=== PATIENT | male | born 1935 | race Asian ===

== ENCOUNTER 2017-09-03 07:04 | Day surgery (SDC) | payer MEDICARE, OTHER ==
[~2017-09-03] VITALS: Ht 171.4 cm; Wt 74.4 kg
[~2017-09-03 07:04] MED LIST: AMLO5TAB4 PO; ASPI-1159 PO; ATOR20TA65 PO; COR6 PO; IRBE300T18 PO; SPIR25TA PO; TICA90TA PO
[2017-09-03] MEDS ORDERED: DOXA1TAB2 PO (08:15)
[2017-09-03] MEDS ORDERED: ASPIRIN/SOD BICARB/CITRIC ACID 324MG TAB EFF ONE (08:17)
[2017-09-03] MEDS ORDERED: HYDROCORTISONE SOD SUCCINATE 250 MG/2 ML VIAL ONE (08:53)
[2017-09-03] MEDS ORDERED: DIPHENHYDRAMINE 50MG/ML VIAL ONE (08:54)
[2017-09-03] MEDS ORDERED: IODIXANOL 320MG/ML 200ML BOTTLE ONE (08:58)
[2017-09-03] MEDS ORDERED: LIDOCAINE HCL 1% 20ML VIAL (Pyxis) INJ ONE (08:58)
[2017-09-03] MEDS ORDERED: FAMOTIDINE 20MG/2ML VIAL IV ONE (08:59)
[2017-09-03 09:01] LABS: HEMATOCRIT 37.4 % (42.0-52.0); HEMOGLOBIN 12.7 g/dL (14.0-18.0); MEAN CORPUSCULAR HEMOGLOBIN 31.2 pg (28.0-32.0); PLATELET 161 x1000/uL (130-400); RED BLOOD CELL COUNT 4.06 mill/uL (4.7-6.1); RED CELL DISTRIBUTION WIDTH 13.9 % (11.6-14.6)
[2017-09-03 09:11] LABS: PROTHROMBIN TIME 10.9 sec (9.4-11.6)
[2017-09-03] MEDS ORDERED: MORPHINE SULFATE 4 MG/ML CPJ (NOT FOR IM USE) IV PRN (09:45)
[2017-09-03] MEDS ORDERED: SODIUM CHLORIDE 0.45% 1,000 ML IV ONE (09:45)
[2017-09-03] MEDS ORDERED: ATROPINE SULFATE 1MG/10ML SYR IV PRN (09:45)
[2017-09-03] MEDS ORDERED: ACETAMINOPHEN 325MG TABLET PO PRN (09:45)
[2017-09-03] MEDS ORDERED: ONDANSETRON HCL 4MG/2ML VIAL IV PRN (09:45)
[2017-09-03] MEDS ORDERED: NICARDIPINE 100MCG/ML 10ML VIAL (CATH LAB) IV ONE (13:44)
[2017-09-03] MEDS ORDERED: NITROGLYCERIN 50MCG/ML 10ML VIAL (CATH LAB) IV ONE (13:44)
[2017-09-03] MEDS ORDERED: HEPARIN SODIUM 1,000 UNIT/1ML VIAL IV ONE (15:11)
== END 2017-09-03 15:00 | disposition home or self-care (01) ==
LOC: CCL 07:04
PROVIDERS: ATTEND Specialist
DX: I25.10 Atherosclerotic heart disease of native coronary artery without angina pectoris (principal); I25.5 Ischemic cardiomyopathy; I25.2 Old myocardial infarction; I11.9 Hypertensive heart disease without heart failure; E11.9 Type 2 diabetes mellitus without complications; E78.00 Pure hypercholesterolemia, unspecified; R06.02 Shortness of breath; Z95.1 Presence of aortocoronary bypass graft; Z91.013 Allergy to seafood; Z88.8 Allergy status to other drugs, medicaments and biological substances; Z79.899 Other long term (current) drug therapy; Z98.890 Other specified postprocedural states
CPT/HCPCS: 36415; 80048; 82962; 85027; 85610; 93005; 93459; C1769; C1887; C1893; J1200; J1644; J1720; J3490; Q9967

== ENCOUNTER 2018-05-26 17:29 | Inpatient (IN) | payer MEDICARE, OTHER ==
[~2018-05-26] VITALS: Ht 172.7 cm; Wt 70.9 kg
[~2018-05-26 17:29] MED LIST changes: +DOXA1TAB2 PO
[2018-05-27] VITALS (8 sets, daily range): BP systolic 105–153; BP diastolic 48–88
[2018-05-27] MEDS ORDERED: ONDANSETRON HCL 4MG/2ML INJ IV STA (00:36)
[2018-05-27] MEDS ORDERED: MORPHINE SULFATE 4 MG/ML CPJ (NOT FOR IM USE) IV STA (00:36)
[2018-05-27] MEDS ORDERED: PIPERACILLIN/TAZ 3.375G PREMIX 50 ML IV ONE (00:45)
[2018-05-27] MEDS ORDERED: VANCOMYCIN 1 G PREMIX 200 ML IV ONE (00:45)
[2018-05-27 01:08] LABS: HEMATOCRIT. 40.3 % (42.0-52.0); HEMOGLOBIN. 13.8 g/dL (14.0-18.0); MEAN CORPUSCULAR HEMOGLOBIN 31.2 pg (28.0-32.0); MEAN CORPUSCULAR VOLUME 91.2 fL (80.0-94.0); MEAN PLATELET VOLUME 8.5 fl (7.4-10.4); PLATELET 180 x1000/uL (130-400); RED BLOOD CELL COUNT 4.42 mill/uL (4.7-6.1); RED CELL DISTRIBUTION WIDTH 15.2 % (11.6-14.6)
[2018-05-27 01:15] LABS: CHLORIDE 105 mEq/L (98-107)
[2018-05-27 03:48] LABS: PLATELET ESTIMATE NORMAL
[2018-05-27] MEDS ORDERED: SODIUM CHLORIDE 0.9% 1,000 ML IV ONE (07:08)
[2018-05-27] MEDS ORDERED: ASPIRIN/SOD BICARB/CITRIC ACID 324MG TAB EFF ONE (08:40)
[2018-05-27] MEDS ORDERED: LIDOCAINE HCL 1% 20ML VIAL (Pyxis) INJ ONE (08:40)
[2018-05-27] MEDS ORDERED: IOHEXOL-300 100 ML BOTTLE ONE (08:41)
[2018-05-27] MEDS ORDERED: IODIXANOL 320MG/ML 100 ML BOTTLE IV ONE ×2 (08:41→11:14)
[2018-05-27] MEDS ORDERED: HYDROCORTISONE SOD SUCCINATE 250 MG/2 ML VIAL ONE (08:45)
[2018-05-27] MEDS ORDERED: FAMOTIDINE 20MG/2ML VIAL IV ONE (08:45)
[2018-05-27] MEDS ORDERED: DIPHENHYDRAMINE 50MG/ML VIAL ONE (08:45)
[2018-05-27] MEDS ORDERED: ONDANSETRON HCL 4MG/2ML INJ ONE (09:11)
[2018-05-27] MEDS ORDERED: FURO-151 PO (09:16)
[2018-05-27] MEDS ORDERED: MIDAZOLAM HCL 2 MG/2 ML VIAL ONE (09:26)
[2018-05-27] MEDS ORDERED: FENTANYL CITRATE/PF 50MCG/ML 2ML VIAL ONE (09:27)
[2018-05-27] MEDS ORDERED: ACETAMINOPHEN 325MG TABLET PO PRN ×2 (09:30→12:00)
[2018-05-27] MEDS ORDERED: ATROPINE SULFATE 1MG/10ML SYR IV PRN ×2 (09:30→12:00)
[2018-05-27] MEDS ORDERED: TICAGRELOR 90 MG TABLET PO ONE ×3 (11:44→12:55)
[2018-05-27] MEDS ORDERED: DEXTROSE 50% WATER 50ML SYRINGE IV PRN (12:00)
[2018-05-27] MEDS ORDERED: ONDANSETRON HCL 4MG/2ML INJ IV PRN (12:00)
[2018-05-27] MEDS ORDERED: SODIUM CHLORIDE 0.45% 1,000 ML IV ONE (12:16)
[2018-05-27] MEDS ORDERED: CLONIDINE 0.1MG TABLET PO PRN (12:30)
[2018-05-27] MEDS ORDERED: CLONIDINE 0.2MG TABLET PO PRN (12:30)
[2018-05-27] MEDS: BLOOD SUGAR DIAGNOSTIC STRIP TEST SCH ×3 (12:40→21:51)
[2018-05-27] MEDS ORDERED: HEPARIN SODIUM 1,000 UNIT/1ML VIAL IV ONE (14:39)
[2018-05-27] MEDS: AMLODIPINE 5MG TABLET PO SCH ×2 (15:54→21:00)
[2018-05-27] MEDS ORDERED: HYDROCODONE/ACETAMINOPHEN 10/325MG TABLET PO NR (16:00)
[2018-05-27] MEDS: INSULIN LISPRO 100 UNITS/ML SUBCUT SCH ×2 (17:38→22:04)
[2018-05-27] MEDS: PIPERACILLIN/TAZ 3.375G PREMIX 50 ML IV SCH (19:56)
[2018-05-27] MEDS: DOXAZOSIN MESYLATE 2MG TABLET PO SCH (21:00)
[2018-05-27] MEDS: CARVEDILOL 3.125 MG TABLET PO SCH (21:00)
[2018-05-27] MEDS: ATORVASTATIN CALCIUM 20MG TABLET PO SCH (22:03)
[2018-05-28] VITALS (12 sets, daily range): BP systolic 99–128; BP diastolic 39–57
[2018-05-28] MEDS: PIPERACILLIN/TAZ 3.375G PREMIX 50 ML IV SCH ×3 (01:57→14:07)
[2018-05-28] MEDS: BLOOD SUGAR DIAGNOSTIC STRIP TEST SCH ×4 (06:24→21:21)
[2018-05-28] MEDS: INSULIN LISPRO 100 UNITS/ML SUBCUT SCH ×4 (06:25→21:35)
[2018-05-28 06:33] LABS: BASOPHILS % 1.1 % (0.0-2.0); EOSINOPHILS % 4.1 % (0.0-5.0); HEMATOCRIT. 28.5 % (42.0-52.0); HEMOGLOBIN. 10.1 g/dL (14.0-18.0); LYMPHOCYTES % 11.9 % (20.0-50.0); MEAN CORPUSCULAR HEMOGLOBIN 32.5 pg (28.0-32.0); MEAN PLATELET VOLUME 8.7 fl (7.4-10.4); MONOCYTES % 12.3 % (2.0-8.0); NEUTROPHILS % 70.6 % (40.0-76.0); PLATELET 147 x1000/uL (130-400); RED CELL DISTRIBUTION WIDTH 15.3 % (11.6-14.6)
[2018-05-28] MEDS: ASPIRIN 81MG TABLET PO SCH (08:58)
[2018-05-28] MEDS: CARVEDILOL 3.125 MG TABLET PO SCH ×2 (08:58→21:37)
[2018-05-28] MEDS: TICAGRELOR 90 MG TABLET PO SCH ×2 (08:59→21:35)
[2018-05-28] MEDS: AMLODIPINE 5MG TABLET PO SCH ×2 (08:59→21:00)
[2018-05-28] MEDS ORDERED: ASPIRIN 325MG TABLET PO SCH (09:00)
[2018-05-28 10:20] LABS: HEMATOCRIT 28.3 % (42.0-52.0); HEMOGLOBIN 9.6 g/dL (14.0-18.0)
[2018-05-28 14:42] LABS: CLARITY URINE CLOUDY (CLEAR); COLOR URINE YELLOW (YELLOW); KETONES URINE NEGATIVE (NEGATIVE); LEUKOCYTE ESTERASE URINE NEGATIVE (NEGATIVE); NITRITE URINE NEGATIVE (NEGATIVE); OCCULT BLOOD URINE 2+ (NEGATIVE); PH URINE 5.5 (4.5-8.0); PROTEIN URINE NEGATIVE (NEGATIVE); SPECIFIC GRAVITY URINE 1.033 (1.005-1.030); UROBILINOGEN URINE 0.2 E.U./dL (0.2-1.0)
[2018-05-28 15:11] LABS: CREATINE KINASE 35 IU/L (39-308)
[2018-05-28] MEDS ORDERED: PIPERACILLIN/TAZ 2.25G PREMIX 50 ML IV SCH (20:00)
[2018-05-28] MEDS: AMOXICILLIN/POTASSIUM CLAVULANATE 875/125MG TAB PO SCH (21:35)
[2018-05-28] MEDS: ATORVASTATIN CALCIUM 20MG TABLET PO SCH (21:38)
[2018-05-28] MEDS: DOXAZOSIN MESYLATE 2MG TABLET PO SCH (21:39)
[2018-05-29] VITALS (12 sets, daily range): BP systolic 111–145; BP diastolic 44–66
[2018-05-29] MEDS: BLOOD SUGAR DIAGNOSTIC STRIP TEST SCH ×4 (06:30→21:44)
[2018-05-29] MEDS: INSULIN LISPRO 100 UNITS/ML SUBCUT SCH ×4 (07:20→22:14)
[2018-05-29] MEDS: TICAGRELOR 90 MG TABLET PO SCH ×2 (08:01→21:32)
[2018-05-29] MEDS: AMLODIPINE 5MG TABLET PO SCH ×2 (08:01→21:00)
[2018-05-29] MEDS: ASPIRIN 81MG TABLET PO SCH (08:02)
[2018-05-29] MEDS: AMOXICILLIN/POTASSIUM CLAVULANATE 875/125MG TAB PO SCH ×2 (08:02→21:32)
[2018-05-29] MEDS: CARVEDILOL 3.125 MG TABLET PO SCH ×2 (08:02→21:38)
[2018-05-29 10:45] LABS: BASOPHILS % 1.1 % (0.0-2.0); EOSINOPHILS % 14.9 % (0.0-5.0); HEMATOCRIT. 27.9 % (42.0-52.0); HEMOGLOBIN. 9.6 g/dL (14.0-18.0); LYMPHOCYTES % 12.2 % (20.0-50.0); MEAN CORPUSCULAR HEMOGLOBIN 31.8 pg (28.0-32.0); MEAN CORPUSCULAR VOLUME 92.6 fL (80.0-94.0); MEAN PLATELET VOLUME 8.6 fl (7.4-10.4); MONOCYTES % 11.3 % (2.0-8.0); NEUTROPHILS % 60.5 % (40.0-76.0); PLATELET 162 x1000/uL (130-400); RED BLOOD CELL COUNT 3.01 mill/uL (4.7-6.1); RED CELL DISTRIBUTION WIDTH 15.1 % (11.6-14.6)
[2018-05-29] MEDS ORDERED: SODIUM CHLORIDE 0.45% 1,000 ML IV ONE (13:30)
[2018-05-29] MEDS ORDERED: SODIUM CHLORIDE 0.45% 1,000 ML IV SCH (17:15)
[2018-05-29] MEDS: FERROUS SULFATE 300MG/5ML UDC PO SCH (18:12)
[2018-05-29] MEDS: ATORVASTATIN CALCIUM 20MG TABLET PO SCH (21:32)
[2018-05-29] MEDS: DOXAZOSIN MESYLATE 2MG TABLET PO SCH (21:32)
[2018-05-30] VITALS (7 sets, daily range): BP systolic 113–122; BP diastolic 41–58
[2018-05-30 05:16] LABS: HEMATOCRIT. 25.8 % (42.0-52.0); MEAN CORPUSCULAR HEMOGLOBIN 32.1 pg (28.0-32.0); MEAN CORPUSCULAR VOLUME 91.8 fL (80.0-94.0); MEAN PLATELET VOLUME 8.3 fl (7.4-10.4); PLATELET 150 x1000/uL (130-400); RED BLOOD CELL COUNT 2.81 mill/uL (4.7-6.1); RED CELL DISTRIBUTION WIDTH 15.2 % (11.6-14.6)
[2018-05-30] MEDS: BLOOD SUGAR DIAGNOSTIC STRIP TEST SCH (05:43)
[2018-05-30] MEDS: INSULIN LISPRO 100 UNITS/ML SUBCUT SCH (07:20)
[2018-05-30] MEDS: ASPIRIN 81MG TABLET PO SCH (08:30)
[2018-05-30] MEDS: AMOXICILLIN/POTASSIUM CLAVULANATE 875/125MG TAB PO SCH (08:30)
[2018-05-30] MEDS: CARVEDILOL 3.125 MG TABLET PO SCH (08:30)
[2018-05-30] MEDS: TICAGRELOR 90 MG TABLET PO SCH (08:30)
[2018-05-30] MEDS: FERROUS SULFATE 300MG/5ML UDC PO SCH (08:31)
[2018-05-30] MEDS: AMLODIPINE 5MG TABLET PO SCH (08:33)
[2018-05-30 09:48] LABS: PLATELET ESTIMATE NORMAL
== END 2018-05-30 11:36 | disposition home or self-care (01) | DRG 271 ==
LOC: ER 17:29 → 7WST 05-27 02:43 → EDBEDREQ 05-27 02:44 → EDBEDREQTM 05-27 02:44 → ENRESERV 05-27 06:13 → 3WST 05-27 14:12
PROVIDERS: ADMIT Specialist; ATTEND Specialist
PROC: 047K3D6 (ICD-10-PCS; principal; 2018-05-27)
PROC: [UNRECOGNIZED PROCEDURE] (2018-05-27)
DX: E11.51 Type 2 diabetes mellitus with diabetic peripheral angiopathy without gangrene (principal); R71.0 Precipitous drop in hematocrit; L03.115 Cellulitis of right lower limb; L97.519 Non-pressure chronic ulcer of other part of right foot with unspecified severity; E11.621 Type 2 diabetes mellitus with foot ulcer; I25.10 Atherosclerotic heart disease of native coronary artery without angina pectoris; I65.29 Occlusion and stenosis of unspecified carotid artery; E78.00 Pure hypercholesterolemia, unspecified; R26.9 Unspecified abnormalities of gait and mobility; I25.5 Ischemic cardiomyopathy; E11.42 Type 2 diabetes mellitus with diabetic polyneuropathy; I10 Essential (primary) hypertension; Z87.891 Personal history of nicotine dependence; Z95.1 Presence of aortocoronary bypass graft; Z95.5 Presence of coronary angioplasty implant and graft; Z91.013 Allergy to seafood; Z88.9 Allergy status to unspecified drugs, medicaments and biological substances; Z79.84 Long term (current) use of oral hypoglycemic drugs
CPT/HCPCS: 36415; 37227; 73630; 74176; 75710; 76775; 76857; 80048; 82550; 82962; 83605; 83735; 85014; 85018; 85347; 93005; 96365; 96366; 97162; 99285; C1724; C1725; C1726; C1760; C1769; C1876; C1887; C1893; C1894; J1200; J1644; J1720; J1815; J2250; J2270; J2405; J2543; J3010; J3370; J3490; Q9967; J8499

== ENCOUNTER 2018-11-24 10:04 | Day surgery (SDC) | payer MEDICARE, OTHER ==
[~2018-11-24] VITALS: Ht 170.2 cm; Wt 68.0 kg
[~2018-11-24 10:04] MED LIST changes: -ASPI-1159 PO; +ASPI-1393 PO; +FURO-151 PO
[2018-11-24 13:14] LABS: HEMATOCRIT. 36.3 % (42.0-52.0); HEMOGLOBIN. 12.2 g/dL (14.0-18.0); MEAN CORPUSCULAR HEMOGLOBIN 31.7 pg (28.0-32.0); MEAN CORPUSCULAR VOLUME 94.5 fL (80.0-94.0); MEAN PLATELET VOLUME 9.3 fl (7.4-10.4); PLATELET 111 x1000/uL (130-400); RED BLOOD CELL COUNT 3.84 mill/uL (4.7-6.1); RED CELL DISTRIBUTION WIDTH 14.8 % (11.6-14.6)
[2018-11-24] MEDS ORDERED: SODIUM CHLORIDE 0.9% 1,000 ML IV SCH (13:15)
[2018-11-24 13:21] LABS: INR 1.1; PARTIAL THROMBOPLASTIN TIME 28.6 sec (23.4-31.0); PROTHROMBIN TIME 10.9 sec (9.6-11.0)
[2018-11-24] MEDS ORDERED: GENTAMICIN SULF 40MG/ML 2ML VIAL ONE (14:14)
[2018-11-24] MEDS ORDERED: BACITRACIN 15GM TUBE TOP ONE (14:14)
[2018-11-24] MEDS ORDERED: NORMAL SALINE 0.9% 10 ML SYR ONE (14:15)
[2018-11-24] MEDS ORDERED: BUPIVACAINE HCL/PF 0.5% (5MG/ML) 10ML ONE (14:15)
[2018-11-24] MEDS ORDERED: BACITRACIN 50,000 UNITS/VIAL ONE (14:15)
[2018-11-24] MEDS ORDERED: LIDOCAINE HCL 1% 20ML VIAL (Pyxis) INJ ONE (14:15)
[2018-11-24 14:30] LABS: PLATELET ESTIMATE DECREASED
[2018-11-24] MEDS ORDERED: FENTANYL CITRATE/PF 50MCG/ML 2ML VIAL ONE (14:54)
[2018-11-24] MEDS ORDERED: DOXA1TAB2 PO (16:56)
[2018-11-24] MEDS ORDERED: INSU100I28 SQ (16:56)
[2018-11-24] MEDS ORDERED: AMOX-405 PO (16:56)
[2018-11-24] MEDS ORDERED: CLOP75TA4 PO (16:56)
[2018-11-24] MEDS ORDERED: GABA-531 PO (16:56)
== END 2018-11-24 17:50 | disposition home or self-care (01) ==
LOC: OR 10:04
PROVIDERS: ATTEND Podiatrist Foot & Ankle Surgery
DX: M86.8X7 Other osteomyelitis, ankle and foot (principal); I73.9 Peripheral vascular disease, unspecified; L97.519 Non-pressure chronic ulcer of other part of right foot with unspecified severity; I10 Essential (primary) hypertension; E78.00 Pure hypercholesterolemia, unspecified; I25.10 Atherosclerotic heart disease of native coronary artery without angina pectoris; I48.91 Unspecified atrial fibrillation; Z79.82 Long term (current) use of aspirin; Z79.899 Other long term (current) drug therapy; Z91.013 Allergy to seafood; Z98.890 Other specified postprocedural states; Z88.8 Allergy status to other drugs, medicaments and biological substances; Z95.5 Presence of coronary angioplasty implant and graft; Z83.3 Family history of diabetes mellitus
CPT/HCPCS: 28820; 36415; 73620; 80048; 82962; 85025; 85610; 85730; 88305; 88311; J3010; J3490; J1580

== ENCOUNTER 2018-11-28 12:13 | Inpatient (IN) | payer MEDICARE, OTHER ==
[~2018-11-28] VITALS: Ht 170.2 cm; Wt 74.6 kg
[~2018-11-28 12:13] MED LIST changes: +AMOX-405 PO; +CLOP75TA4 PO; +GABA-531 PO; +INSU100I28 SQ; -IRBE300T18 PO; -TICA90TA PO
[2018-11-28] MEDS ORDERED: METHYLPREDNISOLONE SOD SUCC 125 MG/2 ML VIAL IV STA (12:58)
[2018-11-28] MEDS ORDERED: ALBUTEROL (0.083%) 2.5MG/3ML NEB HHN STA (12:58)
[2018-11-28 13:46] LABS: HEMATOCRIT. 37.1 % (42.0-52.0); HEMOGLOBIN. 12.3 g/dL (14.0-18.0); MEAN CORPUSCULAR HEMOGLOBIN 31.6 pg (28.0-32.0); MEAN CORPUSCULAR VOLUME 94.9 fL (80.0-94.0); MEAN PLATELET VOLUME 10.5 fl (7.4-10.4); PLATELET 132 x1000/uL (130-400); RED BLOOD CELL COUNT 3.91 mill/uL (4.7-6.1); RED CELL DISTRIBUTION WIDTH 14.9 % (11.6-14.6)
[2018-11-28 13:47] LABS: CHLORIDE 96 mEq/L (98-107)
[2018-11-28 14:11] LABS: PLATELET ESTIMATE NORMAL
[2018-11-28] MEDS ORDERED: DEXTROSE 50% WATER 50ML SYRINGE IV PRN (14:15)
[2018-11-28] MEDS ORDERED: CLONIDINE 0.1MG TABLET PO PRN (14:15)
[2018-11-28] MEDS ORDERED: ALBUTEROL (0.083%) 2.5MG/3ML NEB HHN PRN (15:30)
[2018-11-28] MEDS ORDERED: ASPIRIN 81MG TABLET PO ONE (15:30)
[2018-11-28] MEDS ORDERED: FUROSEMIDE 20MG TABLET PO ONE (15:30)
[2018-11-28] MEDS ORDERED: TICAGRELOR 90 MG TABLET PO SCH (17:00)
[2018-11-28] MEDS: ASPIRIN 81MG EC TABLET PO SCH (17:30)
[2018-11-28 17:45] VITALS: BP 134/64
[2018-11-28] MEDS: CLOPIDOGREL 75MG TABLET PO SCH (17:45)
[2018-11-28] MEDS: CEFTRIAXONE 1,000 MG in DEXTROSE 5% WATER 50 ML IV SCH (19:05)
[2018-11-28 20:00] VITALS: BP 126/88
[2018-11-28] MEDS: METHYLPREDNISOLONE SOD SUCC 40 MG/ML VIAL IV SCH (20:20)
[2018-11-28] MEDS: DOXAZOSIN MESYLATE 2MG TABLET PO SCH (20:21)
[2018-11-28] MEDS: GUAIFENESIN 600MG ER TABLET PO SCH (20:21)
[2018-11-28] MEDS: ATORVASTATIN CALCIUM 20MG TABLET PO SCH (20:21)
[2018-11-28] MEDS: ALBUTEROL (0.083%) 2.5MG/3ML NEB HHN SCH (20:36)
[2018-11-28] MEDS: INSULIN LISPRO 100 UNITS/ML SUBCUT SCH ×2 (20:59→21:00)
[2018-11-28] MEDS: BLOOD SUGAR DIAGNOSTIC STRIP TEST SCH (21:00)
[2018-11-28 22:15] VITALS: BP 128/60
[2018-11-29] VITALS (13 sets, daily range): BP systolic 120–152; BP diastolic 57–69
[2018-11-29] MEDS: ALBUTEROL (0.083%) 2.5MG/3ML NEB HHN SCH ×4 (01:05→21:28)
[2018-11-29] MEDS: METHYLPREDNISOLONE SOD SUCC 40 MG/ML VIAL IV SCH ×3 (05:33→21:30)
[2018-11-29] MEDS: BLOOD SUGAR DIAGNOSTIC STRIP TEST SCH ×4 (06:27→21:37)
[2018-11-29 07:23] LABS: BASOPHILS % 0.2 % (0.0-2.0); HEMATOCRIT. 37.6 % (42.0-52.0); HEMOGLOBIN. 12.6 g/dL (14.0-18.0); LYMPHOCYTES % 8.1 % (20.0-50.0); MEAN CORPUSCULAR HEMOGLOBIN 31.4 pg (28.0-32.0); MEAN CORPUSCULAR VOLUME 94.1 fL (80.0-94.0); MEAN PLATELET VOLUME 9.8 fl (7.4-10.4); MONOCYTES % 2.6 % (2.0-8.0); NEUTROPHILS % 89.1 % (40.0-76.0); PLATELET 131 x1000/uL (130-400); RED CELL DISTRIBUTION WIDTH 14.9 % (11.6-14.6)
[2018-11-29] MEDS: INSULIN LISPRO 100 UNITS/ML SUBCUT SCH ×4 (07:53→21:28)
[2018-11-29 07:55] LABS: CHLORIDE 95 mEq/L (98-107)
[2018-11-29 08:03] LABS: CREATINE KINASE 26 IU/L (39-308); CREATINE KINASE MB FRACTION 1.3 ng/mL (0.5-3.6); HDL CHOLESTEROL 43 mg/dL (40-59); LDL CHOLESTEROL 151 mg/dL (5-100)
[2018-11-29] MEDS: ASPIRIN 81MG EC TABLET PO SCH (08:41)
[2018-11-29] MEDS: CLOPIDOGREL 75MG TABLET PO SCH (08:41)
[2018-11-29] MEDS: ENOXAPARIN 30MG/0.3ML SYR SUBCUT SCH (08:42)
[2018-11-29] MEDS: GUAIFENESIN 600MG ER TABLET PO SCH ×2 (08:42→21:29)
[2018-11-29] MEDS ORDERED: FUROSEMIDE 40MG TABLET PO SCH (09:00)
[2018-11-29] MEDS: BUDESONIDE 0.5MG/2ML NEB HHN SCH ×2 (09:52→21:27)
[2018-11-29] MEDS: CEFTRIAXONE 1,000 MG in DEXTROSE 5% WATER 50 ML IV SCH (18:22)
[2018-11-29] MEDS: ATORVASTATIN CALCIUM 20MG TABLET PO SCH (21:29)
[2018-11-29] MEDS: DOXAZOSIN MESYLATE 2MG TABLET PO SCH (21:30)
[2018-11-30] VITALS (12 sets, daily range): BP systolic 118–153; BP diastolic 53–74
[2018-11-30] MEDS: ALBUTEROL (0.083%) 2.5MG/3ML NEB HHN SCH ×4 (02:53→20:08)
[2018-11-30] MEDS: METHYLPREDNISOLONE SOD SUCC 40 MG/ML VIAL IV SCH ×3 (06:00→21:12)
[2018-11-30] MEDS: BLOOD SUGAR DIAGNOSTIC STRIP TEST SCH ×4 (06:50→21:13)
[2018-11-30 08:04] LABS: HEMATOCRIT 36.3 % (42.0-52.0); MEAN CORPUSCULAR HEMOGLOBIN 31.5 pg (28.0-32.0); MEAN CORPUSCULAR VOLUME 94.9 fL (80.0-94.0); PLATELET 139 x1000/uL (130-400); RED BLOOD CELL COUNT 3.82 mill/uL (4.7-6.1); RED CELL DISTRIBUTION WIDTH 14.7 % (11.6-14.6)
[2018-11-30] MEDS: GUAIFENESIN 600MG ER TABLET PO SCH ×2 (09:01→21:12)
[2018-11-30] MEDS: CLOPIDOGREL 75MG TABLET PO SCH (09:01)
[2018-11-30] MEDS: ENOXAPARIN 30MG/0.3ML SYR SUBCUT SCH (09:01)
[2018-11-30] MEDS: ASPIRIN 81MG EC TABLET PO SCH (09:01)
[2018-11-30] MEDS: INSULIN LISPRO 100 UNITS/ML SUBCUT SCH ×4 (09:02→22:16)
[2018-11-30] MEDS: BUDESONIDE 0.5MG/2ML NEB HHN SCH ×2 (09:07→20:09)
[2018-11-30] MEDS: CEFTRIAXONE 1,000 MG in DEXTROSE 5% WATER 50 ML IV SCH (17:37)
[2018-11-30] MEDS: ATORVASTATIN CALCIUM 20MG TABLET PO SCH (21:12)
[2018-11-30] MEDS: DOXAZOSIN MESYLATE 2MG TABLET PO SCH (21:14)
[2018-12-01] VITALS (12 sets, daily range): BP systolic 129–153; BP diastolic 56–86
[2018-12-01] MEDS: ALBUTEROL (0.083%) 2.5MG/3ML NEB HHN SCH ×4 (01:59→20:35)
[2018-12-01] MEDS: METHYLPREDNISOLONE SOD SUCC 40 MG/ML VIAL IV SCH ×2 (06:54→12:31)
[2018-12-01] MEDS: BLOOD SUGAR DIAGNOSTIC STRIP TEST SCH ×4 (06:59→20:49)
[2018-12-01] MEDS: INSULIN LISPRO 100 UNITS/ML SUBCUT SCH ×4 (07:30→20:56)
[2018-12-01] MEDS: ENOXAPARIN 40MG/0.4ML SYR SUBCUT SCH (09:26)
[2018-12-01] MEDS: CLOPIDOGREL 75MG TABLET PO SCH (09:26)
[2018-12-01] MEDS: ASPIRIN 81MG EC TABLET PO SCH (09:26)
[2018-12-01] MEDS: GUAIFENESIN 600MG ER TABLET PO SCH ×2 (09:26→20:46)
[2018-12-01] MEDS: BUDESONIDE 0.5MG/2ML NEB HHN SCH ×2 (09:52→20:35)
[2018-12-01] MEDS ORDERED: DEXTROSE 50% WATER 50ML SYRINGE IV PRN (10:30)
[2018-12-01] MEDS: HYDROCODONE/ACETAMINOPHEN 5/325MG TABLET PO PRN (11:06)
[2018-12-01 11:13] LABS: HEMATOCRIT. 36.5 % (42.0-52.0); HEMOGLOBIN. 12.1 g/dL (14.0-18.0); MEAN CORPUSCULAR HEMOGLOBIN 31.6 pg (28.0-32.0); MEAN CORPUSCULAR VOLUME 95.5 fL (80.0-94.0); MEAN PLATELET VOLUME 9.5 fl (7.4-10.4); PLATELET 123 x1000/uL (130-400); RED BLOOD CELL COUNT 3.82 mill/uL (4.7-6.1); RED CELL DISTRIBUTION WIDTH 14.7 % (11.6-14.6)
[2018-12-01 11:20] LABS: CHLORIDE 98 mEq/L (98-107)
[2018-12-01] MEDS: PREDNISONE 20MG TABLET PO SCH ×2 (13:15→17:25)
[2018-12-01 14:07] LABS: PLATELET ESTIMATE SLIGHTLY DECREASED
[2018-12-01] MEDS: CEFTRIAXONE 1,000 MG in DEXTROSE 5% WATER 50 ML IV SCH (17:26)
[2018-12-01] MEDS: DOXAZOSIN MESYLATE 2MG TABLET PO SCH (20:45)
[2018-12-01] MEDS: ATORVASTATIN CALCIUM 20MG TABLET PO SCH (20:46)
[2018-12-01] MEDS ORDERED: INSULIN GLARGINE UD 100 UNITS/ML SYR SUBCUT SCH (22:00)
[2018-12-02] VITALS (9 sets, daily range): BP systolic 125–148; BP diastolic 61–72
[2018-12-02] MEDS: ALBUTEROL (0.083%) 2.5MG/3ML NEB HHN SCH ×2 (02:27→10:50)
[2018-12-02] MEDS: BLOOD SUGAR DIAGNOSTIC STRIP TEST SCH ×2 (05:50→11:59)
[2018-12-02 07:23] LABS: HEMATOCRIT. 37.6 % (42.0-52.0); HEMOGLOBIN. 12.6 g/dL (14.0-18.0); MEAN CORPUSCULAR HEMOGLOBIN 31.6 pg (28.0-32.0); MEAN CORPUSCULAR VOLUME 94.6 fL (80.0-94.0); MEAN PLATELET VOLUME 9.6 fl (7.4-10.4); PLATELET 133 x1000/uL (130-400); RED BLOOD CELL COUNT 3.98 mill/uL (4.7-6.1); RED CELL DISTRIBUTION WIDTH 14.8 % (11.6-14.6)
[2018-12-02 07:38] LABS: CHLORIDE 101 mEq/L (98-107)
[2018-12-02] MEDS: INSULIN LISPRO 100 UNITS/ML SUBCUT SCH ×2 (07:58→12:00)
[2018-12-02] MEDS: PREDNISONE 20MG TABLET PO SCH (08:00)
[2018-12-02] MEDS: GUAIFENESIN 600MG ER TABLET PO SCH (08:00)
[2018-12-02] MEDS: ASPIRIN 81MG EC TABLET PO SCH (08:00)
[2018-12-02] MEDS: ENOXAPARIN 40MG/0.4ML SYR SUBCUT SCH (08:00)
[2018-12-02] MEDS: CLOPIDOGREL 75MG TABLET PO SCH (08:00)
[2018-12-02] MEDS: HYDROCODONE/ACETAMINOPHEN 5/325MG TABLET PO PRN ×3 (10:16→14:51)
[2018-12-02] MEDS: BUDESONIDE 0.5MG/2ML NEB HHN SCH (10:50)
[2018-12-02 12:02] LABS: PLATELET ESTIMATE NORMAL
[2018-12-02 12:35] LABS: BG BASE EXCESS 3.8 mmol/L (-2.0-2.0); BG CARBOXYHEMOGLOBIN 0.7 % (0.5-1.5); BG FRACTION INSPIRED OXYGEN 21; BG HCO3 ACT 28.3 mmol/L (22.0-26.0); BG METHEMOGLOBIN 0.2 % (0.0-1.5); BG OXYGEN SATURATION 92.9 % (92.0-98.5); BG OXYHEMOGLOBIN 92.1 % (94.0-97.0); BG PCO2 42.4 mmHg (35.0-45.0); BG PH 7.443 (7.350-7.450); BG PO2 65.2 mmHg (75.0-100.0); BG SAMPLE SITE RIGHT BRACHIAL; BG TOTAL HEMOGLOBIN 12.9 g/dL (12.0-18.0); BG VENT MODE ROOM AIR
== END 2018-12-02 15:58 | disposition home or self-care (01) | DRG 682 ==
LOC: ER 14:20 → 3WST 14:25 → ENRESERV 16:07
PROVIDERS: ADMIT Specialist; ATTEND Specialist
DX: N17.9 Acute kidney failure, unspecified (principal); J96.01 Acute respiratory failure with hypoxia; J44.1 Chronic obstructive pulmonary disease with (acute) exacerbation; I13.0 Hypertensive heart and chronic kidney disease with heart failure and stage 1 through stage 4 chronic kidney disease, or unspecified chronic kidney disease; E87.1 Hypo-osmolality and hyponatremia; R65.10 Systemic inflammatory response syndrome (SIRS) of non-infectious origin without acute organ dysfunction; E78.00 Pure hypercholesterolemia, unspecified; E11.51 Type 2 diabetes mellitus with diabetic peripheral angiopathy without gangrene; I25.5 Ischemic cardiomyopathy; E11.22 Type 2 diabetes mellitus with diabetic chronic kidney disease; I25.10 Atherosclerotic heart disease of native coronary artery without angina pectoris; E87.5 Hyperkalemia; I50.9 Heart failure, unspecified; N18.9 Chronic kidney disease, unspecified; E78.5 Hyperlipidemia, unspecified; Z88.8 Allergy status to other drugs, medicaments and biological substances; Z91.013 Allergy to seafood; Z95.1 Presence of aortocoronary bypass graft; Z87.891 Personal history of nicotine dependence; Z79.899 Other long term (current) drug therapy; Z79.02 Long term (current) use of antithrombotics/antiplatelets; Z79.82 Long term (current) use of aspirin; Z89.421 Acquired absence of other right toe(s); Z79.4 Long term (current) use of insulin; Z95.5 Presence of coronary angioplasty implant and graft
CPT/HCPCS: 36415; 36600; 71045; 78582; 80048; 80061; 82375; 82550; 82553; 82805; 82962; 83735; 83880; 84443; 84484; 85027; 85379; 93005; 94640; 96365; 97162; 99291; A9558; J0696; J1650; J1815; J2920; J2930; J7040; J7060; J7512; J7611; J7626

== ENCOUNTER 2018-12-26 11:46 | Inpatient (IN) | payer MEDICARE, OTHER ==
[2018-12-26] VITALS (8 sets, daily range): BP systolic 103–124; BP diastolic 33–51
[~2018-12-26] VITALS: Ht 165.1 cm; Wt 69.4 kg
[2018-12-26] MEDS ORDERED: LORATADINE 10MG TABLET PO SCH (12:45)
[2018-12-26] MEDS ORDERED: DEXTROSE 50% WATER 50ML SYRINGE IV PRN (12:45)
[2018-12-26] MEDS ORDERED: DIPHENHYDRAMINE 25MG CAPSULE PO SCH (12:45)
[2018-12-26] MEDS ORDERED: ACETAMINOPHEN 650MG SUPP PR SCH (12:45)
[2018-12-26] MEDS ORDERED: CLONIDINE 0.1MG TABLET PO PRN (13:00)
[2018-12-26] MEDS: BLOOD SUGAR DIAGNOSTIC STRIP TEST SCH ×3 (13:48→21:00)
[2018-12-26] MEDS: INSULIN LISPRO 100 UNITS/ML SUBCUT SCH ×3 (13:54→21:00)
[2018-12-26] MEDS: GABAPENTIN 300MG CAPSULE PO SCH ×2 (13:58→22:31)
[2018-12-26] MEDS ORDERED: PANTOPRAZOLE SODIUM 40 MG/VIAL IV SCH (14:00)
[2018-12-26 15:48] LABS: CHLORIDE 102 mEq/L (98-107)
[2018-12-26 15:51] LABS: HEMATOCRIT. 22.1 % (42.0-52.0); HEMOGLOBIN. 7.5 g/dL (14.0-18.0); MEAN CORPUSCULAR VOLUME 94.6 fL (80.0-94.0); MEAN PLATELET VOLUME 8.7 fl (7.4-10.4); PLATELET 188 x1000/uL (130-400); RED BLOOD CELL COUNT 2.34 mill/uL (4.7-6.1); RED CELL DISTRIBUTION WIDTH 14.9 % (11.6-14.6)
[2018-12-26 15:56] LABS: TOTAL IRON BINDING CAPACITY 228 ug/dL (250-450)
[2018-12-26 16:18] LABS: VITAMIN B12 SERUM 1076 pg/mL (211-911)
[2018-12-26 16:59] LABS: NUCLEATED RED BLOOD CELLS 1 /100 WBC; PLATELET ESTIMATE NORMAL
[2018-12-26] MEDS ORDERED: SORBITOL 70% SOLN 30ML PO SCH (17:00)
[2018-12-26] MEDS: FERROUS SULFATE 325MG TABLET PO SCH (17:40)
[2018-12-26 19:45] LABS: HEMATOCRIT 22.9 % (42.0-52.0); HEMOGLOBIN 7.7 g/dL (14.0-18.0)
[2018-12-26] MEDS: ATORVASTATIN CALCIUM 20MG TABLET PO SCH (22:32)
[2018-12-26] MEDS: PANTOPRAZOLE SODIUM 40 MG/VIAL IV SCH (22:32)
[2018-12-26] MEDS: CARVEDILOL 6.25 MG TABLET PO SCH (22:32)
[2018-12-27] VITALS (8 sets, daily range): BP systolic 104–150; BP diastolic 38–64
[2018-12-27 01:27] LABS: HEMATOCRIT 25.3 % (42.0-52.0); HEMOGLOBIN 8.6 g/dL (14.0-18.0)
[2018-12-27] MEDS: BLOOD SUGAR DIAGNOSTIC STRIP TEST SCH ×4 (05:57→20:26)
[2018-12-27 07:23] LABS: BASOPHILS % 1.1 % (0.0-2.0); HEMATOCRIT. 25.3 % (42.0-52.0); HEMOGLOBIN. 8.7 g/dL (14.0-18.0); LYMPHOCYTES % 21.1 % (20.0-50.0); MEAN CORPUSCULAR HEMOGLOBIN 32.1 pg (28.0-32.0); MEAN CORPUSCULAR VOLUME 93.3 fL (80.0-94.0); MEAN PLATELET VOLUME 8.6 fl (7.4-10.4); MONOCYTES % 10.5 % (2.0-8.0); NEUTROPHILS % 53.3 % (40.0-76.0); PLATELET 175 x1000/uL (130-400); RED BLOOD CELL COUNT 2.71 mill/uL (4.7-6.1); RED CELL DISTRIBUTION WIDTH 14.9 % (11.6-14.6)
[2018-12-27 07:33] LABS: CHLORIDE 102 mEq/L (98-107)
[2018-12-27] MEDS: PANTOPRAZOLE SODIUM 40 MG/VIAL IV SCH ×2 (08:10→20:30)
[2018-12-27] MEDS: GABAPENTIN 300MG CAPSULE PO SCH ×3 (08:11→21:22)
[2018-12-27] MEDS: CARVEDILOL 6.25 MG TABLET PO SCH ×2 (08:11→20:31)
[2018-12-27] MEDS: INSULIN LISPRO 100 UNITS/ML SUBCUT SCH ×4 (08:12→20:30)
[2018-12-27] MEDS: FERROUS SULFATE 325MG TABLET PO SCH ×3 (08:14→16:07)
[2018-12-27] MEDS ORDERED: POTASSIUM CHLORIDE 20MEQ TABLET SR PO NR (09:30)
[2018-12-27] MEDS ORDERED: SORBITOL 70% SOLN 30ML PO SCH ×2 (16:00→20:00)
[2018-12-27] MEDS: ASCORBIC ACID 500 MG TABLET PO SCH ×2 (16:07→17:00)
[2018-12-27] MEDS: ATORVASTATIN CALCIUM 20MG TABLET PO SCH (20:31)
[2018-12-28] VITALS: BP 120/53
[2018-12-28 04:00] VITALS: BP 118/44
[2018-12-28] MEDS: GABAPENTIN 300MG CAPSULE PO SCH ×3 (05:37→22:06)
[2018-12-28] MEDS ORDERED: SORBITOL 70% SOLN 30ML PO NR (06:00)
[2018-12-28] MEDS: BLOOD SUGAR DIAGNOSTIC STRIP TEST SCH ×4 (06:11→21:00)
[2018-12-28 06:53] LABS: HEMATOCRIT. 26.7 % (42.0-52.0); HEMOGLOBIN. 9.1 g/dL (14.0-18.0); MEAN CORPUSCULAR HEMOGLOBIN 31.8 pg (28.0-32.0); MEAN CORPUSCULAR VOLUME 93.4 fL (80.0-94.0); MEAN PLATELET VOLUME 8.9 fl (7.4-10.4); PLATELET 203 x1000/uL (130-400); RED BLOOD CELL COUNT 2.86 mill/uL (4.7-6.1); RED CELL DISTRIBUTION WIDTH 15.3 % (11.6-14.6)
[2018-12-28 06:58] LABS: CHLORIDE 103 mEq/L (98-107)
[2018-12-28 07:19] LABS: PARTIAL THROMBOPLASTIN TIME 27.3 sec (23.4-31.0); PROTHROMBIN TIME 10.8 sec (9.6-11.0)
[2018-12-28] MEDS: FERROUS SULFATE 325MG TABLET PO SCH ×3 (07:40→22:04)
[2018-12-28] MEDS: INSULIN LISPRO 100 UNITS/ML SUBCUT SCH ×4 (07:40→21:00)
[2018-12-28] MEDS: ASCORBIC ACID 500 MG TABLET PO SCH ×3 (07:57→22:05)
[2018-12-28 08:00] VITALS: BP 109/36
[2018-12-28] MEDS: CARVEDILOL 6.25 MG TABLET PO SCH ×2 (09:00→22:05)
[2018-12-28 10:18] LABS: PLATELET ESTIMATE NORMAL
[2018-12-28] MEDS ORDERED: KCL 20MEQ/100ML PREMIX 100 ML IV SCH (12:00)
[2018-12-28 12:01] VITALS: BP 130/44
[2018-12-28] MEDS ORDERED: MIDAZOLAM HCL 5 MG/5 ML VIAL ONE (13:43)
[2018-12-28] MEDS ORDERED: FENTANYL CITRATE/PF 50MCG/ML 2ML VIAL ONE (13:43)
[2018-12-28] MEDS ORDERED: FENTANYL CITRATE/PF 50MCG/ML 2ML VIAL IV PRN (14:02)
[2018-12-28] MEDS ORDERED: MIDAZOLAM HCL 5 MG/5 ML VIAL IV PRN (14:19)
[2018-12-28] MEDS ORDERED: OMEPRAZOLE 20MG CAPSULE EXTENDED RELEASE PO NR (15:15)
[2018-12-28 16:00] VITALS: BP 135/50
[2018-12-28 16:42] LABS: BASOPHILS % 1.4 % (0.0-2.0); EOSINOPHILS % 11.9 % (0.0-5.0); HEMOGLOBIN. 8.8 g/dL (14.0-18.0); LYMPHOCYTES % 19.4 % (20.0-50.0); MEAN CORPUSCULAR HEMOGLOBIN 31.7 pg (28.0-32.0); MEAN CORPUSCULAR VOLUME 93.5 fL (80.0-94.0); MEAN PLATELET VOLUME 8.1 fl (7.4-10.4); MONOCYTES % 13.6 % (2.0-8.0); NEUTROPHILS % 53.7 % (40.0-76.0); PLATELET 207 x1000/uL (130-400); RED BLOOD CELL COUNT 2.78 mill/uL (4.7-6.1); RED CELL DISTRIBUTION WIDTH 15.2 % (11.6-14.6)
[2018-12-28 16:49] LABS: CHLORIDE 109 mEq/L (98-107)
[2018-12-28] MEDS: SUCRALFATE 1 G/10 ML UDC PO SCH ×2 (17:10→22:05)
[2018-12-28 20:00] VITALS: BP 125/51
[2018-12-28] MEDS: ATORVASTATIN CALCIUM 20MG TABLET PO SCH (22:06)
[2018-12-29] VITALS: BP 109/44
[2018-12-29 04:00] VITALS: BP 107/37
[2018-12-29] MEDS: SUCRALFATE 1 G/10 ML UDC PO SCH ×2 (06:13→12:59)
[2018-12-29] MEDS: GABAPENTIN 300MG CAPSULE PO SCH ×2 (06:13→13:00)
[2018-12-29] MEDS: INSULIN LISPRO 100 UNITS/ML SUBCUT SCH ×2 (06:29→13:11)
[2018-12-29] MEDS: BLOOD SUGAR DIAGNOSTIC STRIP TEST SCH ×2 (06:29→13:06)
[2018-12-29] MEDS ORDERED: OMEPRAZOLE 20MG CAPSULE EXTENDED RELEASE PO SCH (07:10)
[2018-12-29 08:00] VITALS: BP 147/59
[2018-12-29] MEDS: ASCORBIC ACID 500 MG TABLET PO SCH ×2 (09:20→13:00)
[2018-12-29] MEDS: CARVEDILOL 6.25 MG TABLET PO SCH (09:21)
[2018-12-29] MEDS: FERROUS SULFATE 325MG TABLET PO SCH ×2 (09:21→13:00)
[2018-12-29 12:00] VITALS: BP 117/63
[2018-12-29] MEDS ORDERED: MULTIVITAMINS,THER W-MINERALS TABLET PO SCH (13:00)
[2018-12-29] MEDS ORDERED: FURO-151 MT (16:28)
[2018-12-29] MEDS ORDERED: SPIR25TA6 PO (16:29)
[2018-12-29 16:45] VITALS: BP 117/63
== END 2018-12-29 18:00 | disposition home or self-care (01) | DRG 393 ==
LOC: 8WST 11:46
PROVIDERS: ADMIT Specialist; ATTEND Specialist
PROC: 30233N1 Transfusion of Nonautologous Red Blood Cells into Peripheral Vein, Percutaneous Approach (ICD-10-PCS; 2018-12-26)
PROC: 0DB68ZX Excision of Stomach, Via Natural or Artificial Opening Endoscopic, Diagnostic (ICD-10-PCS; principal; 2018-12-28)
PROC: 0DBK8ZX Excision of Ascending Colon, Via Natural or Artificial Opening Endoscopic, Diagnostic (ICD-10-PCS; 2018-12-28)
PROC: 0DBL8ZX Excision of Transverse Colon, Via Natural or Artificial Opening Endoscopic, Diagnostic (ICD-10-PCS; 2018-12-28)
PROC: 0DBM8ZX Excision of Descending Colon, Via Natural or Artificial Opening Endoscopic, Diagnostic (ICD-10-PCS; 2018-12-28)
DX: K63.5 Polyp of colon (principal); K29.01 Acute gastritis with bleeding; K57.31 Diverticulosis of large intestine without perforation or abscess with bleeding; E44.1 Mild protein-calorie malnutrition; L97.919 Non-pressure chronic ulcer of unspecified part of right lower leg with unspecified severity; N17.9 Acute kidney failure, unspecified; N18.9 Chronic kidney disease, unspecified; I12.9 Hypertensive chronic kidney disease with stage 1 through stage 4 chronic kidney disease, or unspecified chronic kidney disease; D50.9 Iron deficiency anemia, unspecified; E11.22 Type 2 diabetes mellitus with diabetic chronic kidney disease; E11.51 Type 2 diabetes mellitus with diabetic peripheral angiopathy without gangrene; I25.10 Atherosclerotic heart disease of native coronary artery without angina pectoris; I25.5 Ischemic cardiomyopathy; E78.00 Pure hypercholesterolemia, unspecified; E78.5 Hyperlipidemia, unspecified; N40.0 Benign prostatic hyperplasia without lower urinary tract symptoms; G62.9 Polyneuropathy, unspecified; E11.42 Type 2 diabetes mellitus with diabetic polyneuropathy; Z95.1 Presence of aortocoronary bypass graft; Z89.429 Acquired absence of other toe(s), unspecified side; Z95.5 Presence of coronary angioplasty implant and graft; Z87.19 Personal history of other diseases of the digestive system; Z87.891 Personal history of nicotine dependence; Z79.4 Long term (current) use of insulin; Z79.899 Other long term (current) drug therapy; Z79.82 Long term (current) use of aspirin; Z88.8 Allergy status to other drugs, medicaments and biological substances; Z91.013 Allergy to seafood; Z68.25 Body mass index [BMI] 25.0-25.9, adult
CPT/HCPCS: 36415; 71045; 82270; 82607; 82728; 82962; 83540; 83550; 83735; 84443; 84484; 85014; 85018; 85044; 86677; 86850; 86900; 86920; 88305; 88312; 88313; 93005; 97162; C9113; J1815; J2250; J3010; J3480; J7040; P9016; Q0163

== ENCOUNTER 2019-03-17 08:24 | Day surgery (SDC) | payer MEDICARE, OTHER ==
[~2019-03-17 08:24] MED LIST changes: -ASPI-1393 PO; +ASPI-1497 PO; -CLOP75TA4 PO; +FURO-151 MT; -FURO-151 PO; -SPIR25TA PO; +SPIR25TA6 PO
[2019-03-17] MEDS ORDERED: DIPHENHYDRAMINE 50MG/ML VIAL ONE (10:09)
[2019-03-17] MEDS ORDERED: FENTANYL CITRATE/PF 50MCG/ML 2ML VIAL ONE (10:09)
[2019-03-17] MEDS ORDERED: MIDAZOLAM HCL 2 MG/2 ML VIAL ONE (10:09)
[2019-03-17] MEDS ORDERED: LIDOCAINE HCL 1% 20ML VIAL (Pyxis) INJ ONE (10:10)
[2019-03-17] MEDS ORDERED: IODIXANOL 320MG/ML 100 ML BOTTLE IV ONE (10:10)
[2019-03-17] MEDS ORDERED: HYDROCORTISONE SOD SUCCINATE 250 MG/2 ML VIAL ONE (10:10)
[2019-03-17] MEDS ORDERED: FAMOTIDINE 20MG/2ML VIAL IV ONE (10:11)
[2019-03-17] MEDS ORDERED: ASPIRIN/SOD BICARB/CITRIC ACID 324MG TAB EFF ONE (10:11)
[2019-03-17] MEDS ORDERED: ACETAMINOPHEN 325MG TABLET PO PRN (11:15)
[2019-03-17] MEDS ORDERED: MORPHINE SULFATE 2 MG/ML CPJ (NOT FOR IM USE) IV PRN (11:15)
[2019-03-17] MEDS ORDERED: ONDANSETRON HCL 4MG/2ML INJ IV PRN (11:15)
[2019-03-17] MEDS ORDERED: ATROPINE SULFATE 1MG/10ML SYR IV PRN (11:15)
[2019-03-17] MEDS ORDERED: NITROGLYCERIN 50MCG/ML 10ML VIAL (CATH LAB) IV ONE (11:53)
[2019-03-17] MEDS ORDERED: HEPARIN SODIUM 1,000 UNIT/1ML VIAL IV ONE (11:53)
[2019-03-17] MEDS ORDERED: NICARDIPINE 100MCG/ML 10ML VIAL (CATH LAB) IV ONE (11:53)
== END 2019-03-17 17:40 | disposition home or self-care (01) ==
LOC: CCL 08:24
PROVIDERS: ATTEND Specialist
DX: I25.10 Atherosclerotic heart disease of native coronary artery without angina pectoris (principal); Z95.1 Presence of aortocoronary bypass graft; I48.92 Unspecified atrial flutter; I10 Essential (primary) hypertension; E78.5 Hyperlipidemia, unspecified; Z95.810 Presence of automatic (implantable) cardiac defibrillator; E11.9 Type 2 diabetes mellitus without complications; Z79.4 Long term (current) use of insulin; Z79.82 Long term (current) use of aspirin; Z79.899 Other long term (current) drug therapy; Z91.013 Allergy to seafood; Z88.8 Allergy status to other drugs, medicaments and biological substances
CPT/HCPCS: 82962; 93459; C1769; C1893; J1200; J1644; J1720; J3490; Q9967; 93455; J2250; J3010

== ENCOUNTER 2019-04-09 14:50 | Inpatient (IN) | payer MEDICARE, OTHER ==
[~2019-04-09] VITALS: Ht 167.6 cm; Wt 66.7 kg
[2019-04-09] MEDS ORDERED: MORPHINE SULFATE 10 MG/ML CPJ IM ONE (19:15)
[2019-04-09 19:32] LABS: HEMATOCRIT. 37.4 % (42.0-52.0); HEMOGLOBIN. 12.9 g/dL (14.0-18.0); MEAN CORPUSCULAR HEMOGLOBIN 32.8 pg (28.0-32.0); MEAN CORPUSCULAR VOLUME 95.2 fL (80.0-94.0); PLATELET 144 x1000/uL (130-400); RED BLOOD CELL COUNT 3.93 mill/uL (4.7-6.1)
[2019-04-09 19:36] LABS: CHLORIDE 97 mEq/L (98-107)
[2019-04-09 19:47] LABS: PROTHROMBIN TIME 10.6 sec (9.6-11.0)
[2019-04-09] MEDS ORDERED: NITROGLYCERIN 0.4MG TABLET SL SL PRN (20:30)
[2019-04-09] MEDS ORDERED: ZOLPIDEM TARTRATE 5MG TABLET PO PRN (20:30)
[2019-04-09] MEDS ORDERED: ENOXAPARIN 40MG/0.4ML SYR SUBCUT SCH (20:30)
[2019-04-09] MEDS ORDERED: MORPHINE SULFATE 2 MG/ML CPJ (NOT FOR IM USE) IV PRN (20:30)
[2019-04-09] MEDS ORDERED: INSULIN REGULAR (HUMULIN R) 300UNITS/3ML SUBCUT ONE (20:30)
[2019-04-09] MEDS ORDERED: ONDANSETRON HCL 4MG/2ML INJ IV PRN (20:30)
[2019-04-09] MEDS ORDERED: LORAZEPAM 0.5MG TABLET PO PRN (20:30)
[2019-04-09] MEDS ORDERED: ACETAMINOPHEN 325MG TABLET PO PRN (20:30)
[2019-04-09] MEDS ORDERED: DOCUSATE SODIUM 100MG CAPSULE PO PRN (20:30)
[2019-04-09] MEDS ORDERED: IPRATROPIUM/ALBUTEROL 0.5-3(2.5)MG/3ML NEB NEB PRN (20:30)
[2019-04-09] MEDS ORDERED: MAGNESIUM/ALUMINUM HYDROXIDE/SIMETHICONE 30ML UDC PO PRN (20:30)
[2019-04-09] MEDS ORDERED: DEXTROSE 50% WATER 50ML SYRINGE IV PRN (20:30)
[2019-04-09] MEDS ORDERED: GUAIFENESIN 200MG/10ML SUGAR FREE UDC PO PRN (20:30)
[2019-04-09] MEDS ORDERED: CLONIDINE 0.1MG TABLET PO PRN (20:30)
[2019-04-09] MEDS ORDERED: TRAMADOL 50MG TABLET PO PRN (20:30)
[2019-04-09] MEDS ORDERED: SODIUM CHLORIDE 0.9% 500 ML IV ONE (20:30)
[2019-04-09 21:00] LABS: PLATELET ESTIMATE NORMAL
[2019-04-09] MEDS ORDERED: FAMOTIDINE 20MG TABLET PO SCH (21:00)
[2019-04-09 21:20] LABS: FOLIC ACID (FOLATE) SERUM >20 ng/mL ng/mL (>5.38)
[2019-04-09 21:31] LABS: VITAMIN B12 SERUM 1544 pg/mL (211-911)
[2019-04-09] MEDS ORDERED: INSULIN GLARGINE UD 100 UNITS/ML SYR SUBCUT SCH (22:00)
[2019-04-10] MEDS ORDERED: PANTOPRAZOLE 40MG DR TABLET PO SCH (07:50)
[2019-04-10 08:20] LABS: HEMATOCRIT. 35.6 % (42.0-52.0); HEMOGLOBIN. 12.4 g/dL (14.0-18.0); MEAN CORPUSCULAR HEMOGLOBIN 32.5 pg (28.0-32.0); PLATELET 142 x1000/uL (130-400); RED BLOOD CELL COUNT 3.83 mill/uL (4.7-6.1); RED CELL DISTRIBUTION WIDTH 17.1 % (11.6-14.6)
[2019-04-10 08:27] LABS: CHLORIDE 101 mEq/L (98-107)
[2019-04-10 08:58] LABS: NUCLEATED RED BLOOD CELLS 2 /100 WBC; PLATELET ESTIMATE NORMAL
[2019-04-10] MEDS ORDERED: APIXABAN 2.5 MG TABLET PO NR ×2 (09:00→17:00)
[2019-04-10] MEDS ORDERED: SPIRONOLACTONE 25MG TABLET PO SCH (09:00)
[2019-04-10] MEDS ORDERED: AMLODIPINE 2.5MG TABLET PO SCH (09:00)
[2019-04-10] MEDS ORDERED: FUROSEMIDE 40MG TABLET PO SCH (09:00)
[2019-04-10] MEDS ORDERED: CARVEDILOL 3.125 MG TABLET PO SCH (10:00)
[2019-04-10] MEDS: BLOOD SUGAR DIAGNOSTIC STRIP TEST SCH ×3 (10:40→21:00)
[2019-04-10] MEDS: INSULIN LISPRO 100 UNITS/ML SUBCUT SCH ×3 (10:44→21:00)
[2019-04-10] MEDS ORDERED: ASPIRIN 81MG EC TABLET PO NR (14:35)
[2019-04-10 16:30] VITALS: BP 134/72
[2019-04-10] MEDS ORDERED: ZOLPIDEM TARTRATE 5MG TABLET PO PRN ×2 (16:30→18:00)
[2019-04-10] MEDS ORDERED: APIXABAN 2.5 MG TABLET PO ONE (17:00)
[2019-04-10] MEDS ORDERED: FERR325T6 MT (17:34)
[2019-04-10] MEDS ORDERED: CIPROFLOXACIN (17:34)
[2019-04-10] MEDS ORDERED: [UNRECOGNIZED DRUG - OTHER] (17:34)
[2019-04-10] MEDS ORDERED: TYLENOL WITH (17:34)
[2019-04-10] MEDS ORDERED: APIX2.5T MT (17:34)
[2019-04-10] MEDS ORDERED: P20 MT (17:34)
[2019-04-10] MEDS ORDERED: TYLENOL 3 (17:34)
[2019-04-10] MEDS ORDERED: FAMO20TA8 MT (17:34)
[2019-04-10] MEDS ORDERED: DEXTROSE 50% WATER 50ML SYRINGE IV PRN (18:00)
[2019-04-10] MEDS ORDERED: CLONIDINE 0.1MG TABLET PO PRN (18:00)
[2019-04-10] MEDS ORDERED: MAGNESIUM/ALUMINUM HYDROXIDE/SIMETHICONE 30ML UDC PO PRN (18:00)
[2019-04-10] MEDS ORDERED: ONDANSETRON HCL 4MG/2ML INJ IV PRN (18:00)
[2019-04-10] MEDS ORDERED: ACETAMINOPHEN 325MG TABLET PO PRN (18:00)
[2019-04-10] MEDS ORDERED: LORAZEPAM 0.5MG TABLET PO PRN (18:00)
[2019-04-10] MEDS ORDERED: DOCUSATE SODIUM 100MG CAPSULE PO PRN (18:00)
[2019-04-10] MEDS ORDERED: GUAIFENESIN 200MG/10ML SUGAR FREE UDC PO PRN (18:00)
[2019-04-10] MEDS ORDERED: NITROGLYCERIN 0.4MG TABLET SL SL PRN (18:00)
[2019-04-10] MEDS: CARVEDILOL 3.125 MG TABLET PO SCH (18:11)
[2019-04-10] MEDS: FUROSEMIDE 40MG TABLET PO SCH (18:12)
[2019-04-10] MEDS: TRAMADOL 50MG TABLET PO PRN (18:12)
[2019-04-10] MEDS ORDERED: ATORVASTATIN CALCIUM 20MG TABLET PO SCH ×2 (21:00)
[2019-04-10] MEDS: AMLODIPINE 2.5MG TABLET PO SCH (21:02)
[2019-04-10] MEDS: ATORVASTATIN CALCIUM 20MG TABLET PO SCH (21:02)
[2019-04-10] MEDS ORDERED: INSULIN GLARGINE UD 100 UNITS/ML SYR SUBCUT SCH (22:00)
[2019-04-10] MEDS: INSULIN GLARGINE UD 100 UNITS/ML SYR SUBCUT SCH (23:32)
[2019-04-11] VITALS: BP 128/64
[2019-04-11 04:00] VITALS: BP 130/67
[2019-04-11] MEDS: CARVEDILOL 3.125 MG TABLET PO SCH ×2 (05:39→18:28)
[2019-04-11] MEDS: PANTOPRAZOLE 40MG DR TABLET PO SCH (05:59)
[2019-04-11] MEDS: INSULIN LISPRO 100 UNITS/ML SUBCUT SCH ×4 (07:07→20:49)
[2019-04-11] MEDS: BLOOD SUGAR DIAGNOSTIC STRIP TEST SCH ×4 (07:07→20:31)
[2019-04-11] MEDS: MORPHINE SULFATE 2 MG/ML CPJ (NOT FOR IM USE) IV PRN ×2 (09:26→16:36)
[2019-04-11] MEDS: AMLODIPINE 2.5MG TABLET PO SCH ×2 (09:27→20:31)
[2019-04-11] MEDS: FUROSEMIDE 40MG TABLET PO SCH (09:27)
[2019-04-11] MEDS: DOCUSATE SODIUM 100MG CAPSULE PO SCH (11:45)
[2019-04-11 12:00] VITALS: BP 115/52
[2019-04-11 16:00] VITALS: BP 113/56
[2019-04-11 20:00] VITALS: BP 128/57
[2019-04-11] MEDS: ATORVASTATIN CALCIUM 20MG TABLET PO SCH (20:31)
[2019-04-11] MEDS: INSULIN GLARGINE UD 100 UNITS/ML SYR SUBCUT SCH (21:25)
[2019-04-12] VITALS: BP 114/66
[2019-04-12] MEDS: MORPHINE SULFATE 2 MG/ML CPJ (NOT FOR IM USE) IV PRN (03:44)
[2019-04-12 04:00] VITALS: BP 119/53
[2019-04-12] MEDS: CARVEDILOL 3.125 MG TABLET PO SCH ×2 (06:09→17:40)
[2019-04-12] MEDS: PANTOPRAZOLE 40MG DR TABLET PO SCH (06:23)
[2019-04-12] MEDS: BLOOD SUGAR DIAGNOSTIC STRIP TEST SCH ×4 (06:48→20:38)
[2019-04-12] MEDS: INSULIN LISPRO 100 UNITS/ML SUBCUT SCH ×4 (07:43→20:54)
[2019-04-12 08:00] VITALS: BP 134/59
[2019-04-12] MEDS: DOCUSATE SODIUM 100MG CAPSULE PO SCH (08:46)
[2019-04-12] MEDS: SPIRONOLACTONE 25MG TABLET PO SCH (08:46)
[2019-04-12] MEDS: AMLODIPINE 2.5MG TABLET PO SCH ×2 (08:47→20:38)
[2019-04-12] MEDS: FUROSEMIDE 40MG TABLET PO SCH (08:47)
[2019-04-12] MEDS ORDERED: SPIRONOLACTONE 25MG TABLET PO SCH ×2 (09:00)
[2019-04-12 12:00] VITALS: BP 127/61
[2019-04-12 16:00] VITALS: BP 135/59
[2019-04-12 20:00] VITALS: BP 119/60
[2019-04-12] MEDS: ATORVASTATIN CALCIUM 20MG TABLET PO SCH (20:38)
[2019-04-12] MEDS: INSULIN GLARGINE UD 100 UNITS/ML SYR SUBCUT SCH (21:54)
[2019-04-12] MEDS: CIPRODEX OT SCH (21:55)
[2019-04-13] VITALS: BP_SYST 106; BP_SYST 113; BP_DIAS 58; BP_DIAS 65
[2019-04-13 04:00] VITALS: BP 120/64
[2019-04-13] MEDS: CARVEDILOL 3.125 MG TABLET PO SCH ×2 (06:00→18:03)
[2019-04-13] MEDS: FAMOTIDINE 20MG TABLET PO SCH (07:17)
[2019-04-13] MEDS: DEXT 5%/0.9% NACL 1,000 ML IV SCH (07:50)
[2019-04-13] MEDS: INSULIN LISPRO 100 UNITS/ML SUBCUT SCH ×4 (07:50→21:00)
[2019-04-13] MEDS: BLOOD SUGAR DIAGNOSTIC STRIP TEST SCH ×4 (07:50→21:32)
[2019-04-13] MEDS ORDERED: LIDOCAINE HCL 1% 20ML VIAL (Pyxis) INJ ONE (07:58)
[2019-04-13] MEDS ORDERED: SODIUM BICARBONATE 4% (2.4MEQ) 5ML VIAL IV ONE (07:58)
[2019-04-13] MEDS ORDERED: IOHEXOL-300 50 ML BOTTLE IV ONE (07:59)
[2019-04-13 08:00] VITALS: BP 121/66
[2019-04-13] MEDS: DOCUSATE SODIUM 100MG CAPSULE PO SCH (09:00)
[2019-04-13] MEDS: AMLODIPINE 2.5MG TABLET PO SCH ×2 (09:00→21:31)
[2019-04-13] MEDS: FUROSEMIDE 40MG TABLET PO SCH (09:00)
[2019-04-13] MEDS: CIPRODEX OT SCH ×2 (10:13→18:04)
[2019-04-13] MEDS ORDERED: DIPHENHYDRAMINE 50MG/ML VIAL ONE (11:18)
[2019-04-13] MEDS ORDERED: FENTANYL CITRATE/PF 50MCG/ML 5ML VIAL ONE (11:26)
[2019-04-13] MEDS ORDERED: FENTANYL CITRATE/PF 50MCG/ML 2ML VIAL ONE (11:26)
[2019-04-13] MEDS ORDERED: MIDAZOLAM HCL 2 MG/2 ML VIAL ONE ×2 (11:27→12:03)
[2019-04-13 11:30] LABS: BASOPHILS % 0.6 % (0.0-2.0); EOSINOPHILS % 1.7 % (0.0-5.0); HEMATOCRIT. 36.4 % (42.0-52.0); HEMOGLOBIN. 12.8 g/dL (14.0-18.0); LYMPHOCYTES % 9.5 % (20.0-50.0); MEAN CORPUSCULAR HEMOGLOBIN 33.3 pg (28.0-32.0); MEAN CORPUSCULAR VOLUME 94.8 fL (80.0-94.0); MEAN PLATELET VOLUME 7.7 fl (7.4-10.4); MONOCYTES % 5.8 % (2.0-8.0); NEUTROPHILS % 82.4 % (40.0-76.0); PLATELET 120 x1000/uL (130-400); RED BLOOD CELL COUNT 3.84 mill/uL (4.7-6.1); RED CELL DISTRIBUTION WIDTH 17.2 % (11.6-14.6)
[2019-04-13 11:35] LABS: CHLORIDE 101 mEq/L (98-107)
[2019-04-13] MEDS ORDERED: SODIUM CHLORIDE 0.9% 10ML VIAL ONE (12:14)
[2019-04-13] MEDS ORDERED: CEFAZOLIN SODIUM 1000MG/VIAL ONE (12:14)
[2019-04-13 16:00] VITALS: BP 129/59
[2019-04-13] MEDS: LIDOCAINE 5% PATCH TOP SCH (18:04)
[2019-04-13 20:00] VITALS: BP 126/63
[2019-04-13] MEDS: ATORVASTATIN CALCIUM 20MG TABLET PO SCH (21:31)
[2019-04-13] MEDS: MORPHINE SULFATE 2 MG/ML CPJ (NOT FOR IM USE) IV PRN (21:32)
[2019-04-13] MEDS: INSULIN GLARGINE UD 100 UNITS/ML SYR SUBCUT SCH (23:09)
[2019-04-14] VITALS: BP 119/55
[2019-04-14 04:00] VITALS: BP 124/74
[2019-04-14] MEDS: DEXT 5%/0.9% NACL 1,000 ML IV SCH (06:17)
[2019-04-14] MEDS: CARVEDILOL 3.125 MG TABLET PO SCH ×2 (06:19→17:42)
[2019-04-14] MEDS: FAMOTIDINE 20MG TABLET PO SCH (06:20)
[2019-04-14] MEDS: BLOOD SUGAR DIAGNOSTIC STRIP TEST SCH ×4 (07:50→21:00)
[2019-04-14] MEDS: INSULIN LISPRO 100 UNITS/ML SUBCUT SCH ×4 (07:50→22:21)
[2019-04-14 07:52] LABS: HEMATOCRIT. 37.9 % (42.0-52.0); HEMOGLOBIN. 12.9 g/dL (14.0-18.0); MEAN CORPUSCULAR HEMOGLOBIN 32.1 pg (28.0-32.0); MEAN CORPUSCULAR VOLUME 94.7 fL (80.0-94.0); MEAN PLATELET VOLUME 7.4 fl (7.4-10.4); PLATELET 163 x1000/uL (130-400); RED BLOOD CELL COUNT 4.01 mill/uL (4.7-6.1); RED CELL DISTRIBUTION WIDTH 17.3 % (11.6-14.6)
[2019-04-14 08:00] VITALS: BP 134/103
[2019-04-14 08:12] LABS: CHLORIDE 100 mEq/L (98-107)
[2019-04-14] MEDS: LIDOCAINE 5% PATCH TOP SCH ×2 (09:00→09:18)
[2019-04-14] MEDS: CIPRODEX OT SCH ×2 (09:15→17:42)
[2019-04-14] MEDS: CALCITONIN,SALMON, 3.7 ML NASAL SPRAY ONENSTRL SCH (09:15)
[2019-04-14] MEDS: CALCIUM CARBONATE/VITAMIN D3 500MG TABLET PO SCH (09:16)
[2019-04-14] MEDS: SPIRONOLACTONE 25MG TABLET PO SCH (09:16)
[2019-04-14] MEDS: DOCUSATE SODIUM 100MG CAPSULE PO SCH (09:16)
[2019-04-14] MEDS: AMLODIPINE 2.5MG TABLET PO SCH ×2 (09:16→22:06)
[2019-04-14] MEDS: FUROSEMIDE 40MG TABLET PO SCH (09:17)
[2019-04-14 12:00] VITALS: BP 114/61
[2019-04-14] MEDS: TRAMADOL 50MG TABLET PO PRN (12:45)
[2019-04-14] MEDS: APIXABAN 5 MG TABLET PO SCH ×2 (14:07→22:09)
[2019-04-14] MEDS: ASPIRIN 81MG EC TABLET PO SCH (14:07)
[2019-04-14 14:57] LABS: PLATELET ESTIMATE NORMAL
[2019-04-14 16:00] VITALS: BP 130/67
[2019-04-14 20:00] VITALS: BP 123/83
[2019-04-14] MEDS: ATORVASTATIN CALCIUM 20MG TABLET PO SCH (22:05)
[2019-04-14] MEDS: INSULIN GLARGINE UD 100 UNITS/ML SYR SUBCUT SCH (22:06)
[2019-04-15] VITALS: BP 114/56
[2019-04-15] MEDS: TRAMADOL 50MG TABLET PO PRN ×2 (00:47→12:45)
[2019-04-15 04:00] VITALS: BP 107/57
[2019-04-15] MEDS: CARVEDILOL 3.125 MG TABLET PO SCH (06:00)
[2019-04-15] MEDS: FAMOTIDINE 20MG TABLET PO SCH (06:10)
[2019-04-15 06:19] LABS: BASOPHILS % 0.8 % (0.0-2.0); EOSINOPHILS % 2.7 % (0.0-5.0); HEMATOCRIT. 34.4 % (42.0-52.0); HEMOGLOBIN. 11.8 g/dL (14.0-18.0); LYMPHOCYTES % 10.4 % (20.0-50.0); MEAN CORPUSCULAR HEMOGLOBIN 32.4 pg (28.0-32.0); MEAN CORPUSCULAR VOLUME 94.6 fL (80.0-94.0); MEAN PLATELET VOLUME 7.6 fl (7.4-10.4); MONOCYTES % 6.4 % (2.0-8.0); NEUTROPHILS % 79.7 % (40.0-76.0); PLATELET 162 x1000/uL (130-400); RED BLOOD CELL COUNT 3.63 mill/uL (4.7-6.1); RED CELL DISTRIBUTION WIDTH 17.5 % (11.6-14.6)
[2019-04-15] MEDS: BLOOD SUGAR DIAGNOSTIC STRIP TEST SCH ×2 (06:19→11:51)
[2019-04-15] MEDS: INSULIN LISPRO 100 UNITS/ML SUBCUT SCH ×2 (07:50→12:19)
[2019-04-15 08:00] VITALS: BP 132/68
[2019-04-15] MEDS: LIDOCAINE 5% PATCH TOP SCH (09:00)
[2019-04-15] MEDS: ASPIRIN 81MG EC TABLET PO SCH (09:04)
[2019-04-15] MEDS: CALCIUM CARBONATE/VITAMIN D3 500MG TABLET PO SCH (09:04)
[2019-04-15] MEDS: FUROSEMIDE 40MG TABLET PO SCH (09:04)
[2019-04-15] MEDS: DOCUSATE SODIUM 100MG CAPSULE PO SCH (09:04)
[2019-04-15] MEDS: CIPRODEX OT SCH (09:04)
[2019-04-15] MEDS: APIXABAN 5 MG TABLET PO SCH (09:04)
[2019-04-15] MEDS: CALCITONIN,SALMON, 3.7 ML NASAL SPRAY ONENSTRL SCH (09:05)
[2019-04-15] MEDS: AMLODIPINE 2.5MG TABLET PO SCH (09:11)
[2019-04-15 12:00] VITALS: BP 111/54
[2019-04-15 14:58] VITALS: BP 111/54
== END 2019-04-15 14:40 | DRG 515 ==
LOC: ER 14:50 → 6EST 19:16 → EDBEDREQSVC 20:43 → EDBEDREQTM 20:43 → EDBEDREQSVC 20:44 → ENRESERV 04-10 14:50 → ER 04-10 16:16 → 6EST 04-10 16:37
PROVIDERS: ADMIT Internal Medicine; ATTEND Internal Medicine
PROC: 0QS03ZZ Reposition Lumbar Vertebra, Percutaneous Approach (ICD-10-PCS; principal; 2019-04-13)
PROC: 0QU03JZ Supplement Lumbar Vertebra with Synthetic Substitute, Percutaneous Approach (ICD-10-PCS; 2019-04-13)
DX: M48.56XA Collapsed vertebra, not elsewhere classified, lumbar region, initial encounter for fracture (principal); E11.00 Type 2 diabetes mellitus with hyperosmolarity without nonketotic hyperglycemic-hyperosmolar coma (NKHHC); N17.0 Acute kidney failure with tubular necrosis; G93.41 Metabolic encephalopathy; E44.0 Moderate protein-calorie malnutrition; E87.1 Hypo-osmolality and hyponatremia; I13.0 Hypertensive heart and chronic kidney disease with heart failure and stage 1 through stage 4 chronic kidney disease, or unspecified chronic kidney disease; L97.319 Non-pressure chronic ulcer of right ankle with unspecified severity; Z79.4 Long term (current) use of insulin; D63.8 Anemia in other chronic diseases classified elsewhere; E11.51 Type 2 diabetes mellitus with diabetic peripheral angiopathy without gangrene; E78.00 Pure hypercholesterolemia, unspecified; E78.5 Hyperlipidemia, unspecified; I25.10 Atherosclerotic heart disease of native coronary artery without angina pectoris; I50.9 Heart failure, unspecified; N18.9 Chronic kidney disease, unspecified; N40.0 Benign prostatic hyperplasia without lower urinary tract symptoms; E83.51 Hypocalcemia; E11.22 Type 2 diabetes mellitus with diabetic chronic kidney disease; I48.0 Paroxysmal atrial fibrillation; I25.5 Ischemic cardiomyopathy; Z60.2 Problems related to living alone; I87.2 Venous insufficiency (chronic) (peripheral); D69.6 Thrombocytopenia, unspecified; L89.156 Pressure-induced deep tissue damage of sacral region; S40.822A Blister (nonthermal) of left upper arm, initial encounter; T78.3XXA Angioneurotic edema, initial encounter; M51.36 Other intervertebral disc degeneration, lumbar region; J44.9 Chronic obstructive pulmonary disease, unspecified; E11.621 Type 2 diabetes mellitus with foot ulcer; W18.30XA Fall on same level, unspecified, initial encounter; S41.111A Laceration without foreign body of right upper arm, initial encounter; I83.013 Varicose veins of right lower extremity with ulcer of ankle; Z95.1 Presence of aortocoronary bypass graft; Z79.01 Long term (current) use of anticoagulants; Z87.891 Personal history of nicotine dependence; Z95.5 Presence of coronary angioplasty implant and graft; Z91.81 History of falling; Z79.899 Other long term (current) drug therapy; Z79.82 Long term (current) use of aspirin; Z89.421 Acquired absence of other right toe(s); Z91.013 Allergy to seafood; Z88.8 Allergy status to other drugs, medicaments and biological substances; Y93.89 Activity, other specified; Y92.89 Other specified places as the place of occurrence of the external cause; Y99.8 Other external cause status; I25.2 Old myocardial infarction; Z82.49 Family history of ischemic heart disease and other diseases of the circulatory system; Z68.23 Body mass index [BMI] 23.0-23.9, adult
CPT/HCPCS: 22511; 22512; 36415; 71045; 72100; 72146; 72148; 80048; 80053; 80061; 82607; 82746; 82962; 83036; 83540; 83550; 84134; 84484; 85025; 92610; 93005; 93306; 93970; 94640; 96372; 97162; 97166; 97760; 99285; J0690; J1200; J1815; J2250; J2270; J3010; J3490; J7040; J7042; Q9967

== ENCOUNTER 2019-04-15 16:10 | Inpatient (IN) | payer MEDICARE, OTHER ==
[~2019-04-15] VITALS: Ht 167.6 cm; Wt 66.7 kg
[~2019-04-15 16:10] MED LIST changes: +APIX2.5T MT; +CIPROFLOXACIN; +FAMO20TA8 MT; +FERR325T6 MT; +P20 MT; +TYLENOL 3; +TYLENOL WITH; +[UNRECOGNIZED DRUG - OTHER]
[2019-04-15] MEDS ORDERED: CLONIDINE 0.1MG TABLET PO PRN (16:45)
[2019-04-15] MEDS ORDERED: LORAZEPAM 0.5MG TABLET PO PRN (16:45)
[2019-04-15] MEDS ORDERED: NITROGLYCERIN 0.4MG TABLET SL SL PRN (16:45)
[2019-04-15] MEDS ORDERED: ONDANSETRON HCL 4MG TABLET PO PRN ×2 (16:45→17:15)
[2019-04-15] MEDS ORDERED: ZOLPIDEM TARTRATE 5MG TABLET PO PRN (16:45)
[2019-04-15] MEDS ORDERED: GUAIFENESIN 200MG/10ML SUGAR FREE UDC PO PRN (16:45)
[2019-04-15] MEDS ORDERED: DOCUSATE SODIUM 100MG CAPSULE PO PRN (16:45)
[2019-04-15] MEDS ORDERED: MAGNESIUM/ALUMINUM HYDROXIDE/SIMETHICONE 30ML UDC PO PRN (16:45)
[2019-04-15] MEDS ORDERED: IPRATROPIUM/ALBUTEROL 0.5-3(2.5)MG/3ML NEB HHN PRN (16:45)
[2019-04-15] MEDS ORDERED: DEXTROSE 50% WATER 50ML SYRINGE IV PRN (16:45)
[2019-04-15] MEDS: INSULIN LISPRO 100 UNITS/ML SUBCUT SCH ×2 (17:00→21:00)
[2019-04-15] MEDS: BLOOD SUGAR DIAGNOSTIC STRIP TEST SCH ×2 (17:40→21:00)
[2019-04-15 17:41] VITALS: BP 121/43
[2019-04-15 17:42] VITALS: BP 121/43
[2019-04-15] MEDS: APIXABAN 5 MG TABLET PO SCH (18:13)
[2019-04-15 20:00] VITALS: BP 126/66
[2019-04-15] MEDS: AMLODIPINE 2.5MG TABLET PO SCH (21:00)
[2019-04-15] MEDS: INSULIN GLARGINE UD 100 UNITS/ML SYR SUBCUT SCH (22:00)
[2019-04-15] MEDS: ATORVASTATIN CALCIUM 20MG TABLET PO SCH (22:04)
[2019-04-15] MEDS: CARVEDILOL 3.125 MG TABLET PO SCH (22:04)
[2019-04-15] MEDS: ACETAMINOPHEN 325MG TABLET PO PRN (22:05)
[2019-04-16] MEDS: BLOOD SUGAR DIAGNOSTIC STRIP TEST SCH ×4 (06:15→21:21)
[2019-04-16] MEDS: INSULIN LISPRO 100 UNITS/ML SUBCUT SCH ×4 (06:15→21:00)
[2019-04-16] MEDS ORDERED: FAMOTIDINE 20MG TABLET PO ONE (07:00)
[2019-04-16 07:11] LABS: CHLORIDE 100 mEq/L (98-107)
[2019-04-16 07:49] LABS: BASOPHILS % 0.5 % (0.0-2.0); EOSINOPHILS % 2.8 % (0.0-5.0); HEMATOCRIT. 33.8 % (42.0-52.0); HEMOGLOBIN. 11.8 g/dL (14.0-18.0); LYMPHOCYTES % 9.9 % (20.0-50.0); MEAN CORPUSCULAR HEMOGLOBIN 32.7 pg (28.0-32.0); MEAN CORPUSCULAR VOLUME 93.9 fL (80.0-94.0); MEAN PLATELET VOLUME 7.3 fl (7.4-10.4); MONOCYTES % 6.8 % (2.0-8.0); PLATELET 194 x1000/uL (130-400); RED BLOOD CELL COUNT 3.59 mill/uL (4.7-6.1); RED CELL DISTRIBUTION WIDTH 17.3 % (11.6-14.6)
[2019-04-16 08:00] VITALS: BP 130/58
[2019-04-16] MEDS: TRAMADOL 50MG TABLET PO PRN ×2 (08:35→18:42)
[2019-04-16] MEDS: ASPIRIN 81MG EC TABLET PO SCH (08:36)
[2019-04-16] MEDS: CARVEDILOL 3.125 MG TABLET PO SCH ×2 (08:36→21:21)
[2019-04-16] MEDS: FUROSEMIDE 40MG TABLET PO SCH (08:36)
[2019-04-16] MEDS: APIXABAN 5 MG TABLET PO SCH ×2 (08:36→16:08)
[2019-04-16] MEDS: DOCUSATE SODIUM 100MG CAPSULE PO SCH (08:36)
[2019-04-16] MEDS: AMLODIPINE 2.5MG TABLET PO SCH ×2 (08:36→21:21)
[2019-04-16] MEDS: CALCIUM CARBONATE 1250MG TABLET (500MG ELEMENTAL CALCIUM) PO SCH (08:36)
[2019-04-16] MEDS: LIDOCAINE 5% PATCH TOP SCH (08:37)
[2019-04-16] MEDS: CALCITONIN,SALMON, 3.7 ML NASAL SPRAY ONENSTRL SCH (08:39)
[2019-04-16 17:36] LABS: CHLORIDE 98 mEq/L (98-107)
[2019-04-16 20:00] VITALS: BP 116/56
[2019-04-16] MEDS: ATORVASTATIN CALCIUM 20MG TABLET PO SCH (21:20)
[2019-04-16] MEDS: INSULIN GLARGINE UD 100 UNITS/ML SYR SUBCUT SCH (21:29)
[2019-04-17] MEDS: BLOOD SUGAR DIAGNOSTIC STRIP TEST SCH ×4 (07:00→21:19)
[2019-04-17] MEDS: INSULIN LISPRO 100 UNITS/ML SUBCUT SCH ×4 (07:30→21:00)
[2019-04-17 09:24] VITALS: BP 120/56
[2019-04-17] MEDS: APIXABAN 5 MG TABLET PO SCH ×2 (09:31→16:21)
[2019-04-17] MEDS: SPIRONOLACTONE 25MG TABLET PO SCH (09:31)
[2019-04-17] MEDS: ASPIRIN 81MG EC TABLET PO SCH (09:31)
[2019-04-17] MEDS: AMLODIPINE 2.5MG TABLET PO SCH ×2 (09:31→21:19)
[2019-04-17] MEDS: CARVEDILOL 3.125 MG TABLET PO SCH ×2 (09:31→21:18)
[2019-04-17] MEDS: FUROSEMIDE 40MG TABLET PO SCH (09:31)
[2019-04-17] MEDS: CALCITONIN,SALMON, 3.7 ML NASAL SPRAY ONENSTRL SCH (09:31)
[2019-04-17] MEDS: CALCIUM CARBONATE 1250MG TABLET (500MG ELEMENTAL CALCIUM) PO SCH (09:31)
[2019-04-17] MEDS: LIDOCAINE 5% PATCH TOP SCH (09:32)
[2019-04-17] MEDS: DOCUSATE SODIUM 100MG CAPSULE PO SCH (09:32)
[2019-04-17] MEDS: LACTULOSE 20G/30ML UDC PO SCH ×2 (16:21→22:00)
[2019-04-17 20:00] VITALS: BP 146/66
[2019-04-17] MEDS: ATORVASTATIN CALCIUM 20MG TABLET PO SCH (21:17)
[2019-04-17] MEDS: INSULIN GLARGINE UD 100 UNITS/ML SYR SUBCUT SCH (22:00)
[2019-04-18] MEDS: LACTULOSE 20G/30ML UDC PO SCH ×3 (06:00→22:00)
[2019-04-18] MEDS: BLOOD SUGAR DIAGNOSTIC STRIP TEST SCH ×4 (06:53→21:00)
[2019-04-18 08:00] VITALS: BP 131/72
[2019-04-18 08:15] LABS: BASOPHILS % 0.7 % (0.0-2.0); EOSINOPHILS % 1.7 % (0.0-5.0); HEMATOCRIT. 31.1 % (42.0-52.0); HEMOGLOBIN. 10.9 g/dL (14.0-18.0); LYMPHOCYTES % 11.4 % (20.0-50.0); MEAN PLATELET VOLUME 7.2 fl (7.4-10.4); MONOCYTES % 7.6 % (2.0-8.0); NEUTROPHILS % 78.6 % (40.0-76.0); PLATELET 219 x1000/uL (130-400); RED BLOOD CELL COUNT 3.31 mill/uL (4.7-6.1); RED CELL DISTRIBUTION WIDTH 17.2 % (11.6-14.6)
[2019-04-18] MEDS: DOCUSATE SODIUM 100MG CAPSULE PO SCH (09:00)
[2019-04-18] MEDS: LIDOCAINE 5% PATCH TOP SCH ×2 (09:00→10:55)
[2019-04-18] MEDS: INSULIN LISPRO 100 UNITS/ML SUBCUT SCH ×4 (09:00→22:19)
[2019-04-18 10:14] LABS: CHLORIDE 100 mEq/L (98-107)
[2019-04-18] MEDS: CALCIUM CARBONATE 1250MG TABLET (500MG ELEMENTAL CALCIUM) PO SCH (10:51)
[2019-04-18] MEDS: AMLODIPINE 2.5MG TABLET PO SCH ×2 (10:51→22:16)
[2019-04-18] MEDS: FUROSEMIDE 40MG TABLET PO SCH (10:51)
[2019-04-18] MEDS: ASPIRIN 81MG EC TABLET PO SCH (10:51)
[2019-04-18] MEDS: CARVEDILOL 3.125 MG TABLET PO SCH ×2 (10:52→22:16)
[2019-04-18] MEDS: APIXABAN 5 MG TABLET PO SCH ×2 (10:53→17:42)
[2019-04-18] MEDS: CALCITONIN,SALMON, 3.7 ML NASAL SPRAY ONENSTRL SCH (17:42)
[2019-04-18 20:00] VITALS: BP_SYST 60
[2019-04-18] MEDS: ATORVASTATIN CALCIUM 20MG TABLET PO SCH (22:15)
[2019-04-18] MEDS: INSULIN GLARGINE UD 100 UNITS/ML SYR SUBCUT SCH (22:19)
[2019-04-18] MEDS: TRAMADOL 50MG TABLET PO PRN (23:19)
[2019-04-19] MEDS: TRAMADOL 50MG TABLET PO PRN (05:50)
[2019-04-19] MEDS: INSULIN LISPRO 100 UNITS/ML SUBCUT SCH ×4 (05:50→21:00)
[2019-04-19] MEDS: BLOOD SUGAR DIAGNOSTIC STRIP TEST SCH ×4 (05:50→21:51)
[2019-04-19] MEDS: LACTULOSE 20G/30ML UDC PO SCH ×3 (05:50→22:00)
[2019-04-19 06:25] LABS: HEMATOCRIT. 32.4 % (42.0-52.0); MEAN CORPUSCULAR HEMOGLOBIN 32.3 pg (28.0-32.0); MEAN PLATELET VOLUME 7.1 fl (7.4-10.4); PLATELET 252 x1000/uL (130-400); RED BLOOD CELL COUNT 3.42 mill/uL (4.7-6.1); RED CELL DISTRIBUTION WIDTH 17.2 % (11.6-14.6)
[2019-04-19 07:02] LABS: CHLORIDE 102 mEq/L (98-107)
[2019-04-19 08:00] VITALS: BP 120/65
[2019-04-19] MEDS: LIDOCAINE 5% PATCH TOP SCH (09:00)
[2019-04-19] MEDS: CALCITONIN,SALMON, 3.7 ML NASAL SPRAY ONENSTRL SCH (11:32)
[2019-04-19] MEDS: CARVEDILOL 3.125 MG TABLET PO SCH ×2 (11:33→21:00)
[2019-04-19] MEDS: AMLODIPINE 2.5MG TABLET PO SCH ×2 (11:33→21:00)
[2019-04-19] MEDS: SPIRONOLACTONE 25MG TABLET PO SCH (11:33)
[2019-04-19] MEDS: APIXABAN 5 MG TABLET PO SCH ×2 (11:33→17:44)
[2019-04-19] MEDS: FUROSEMIDE 40MG TABLET PO SCH (11:33)
[2019-04-19] MEDS: DOCUSATE SODIUM 100MG CAPSULE PO SCH (11:33)
[2019-04-19] MEDS: ASPIRIN 81MG EC TABLET PO SCH (11:34)
[2019-04-19 13:03] LABS: PLATELET ESTIMATE NORMAL
[2019-04-19] MEDS: CALCIUM CARBONATE 1250MG TABLET (500MG ELEMENTAL CALCIUM) PO SCH (13:07)
[2019-04-19 20:00] VITALS: BP 108/53
[2019-04-19] MEDS: ATORVASTATIN CALCIUM 20MG TABLET PO SCH (21:51)
[2019-04-19] MEDS: INSULIN GLARGINE UD 100 UNITS/ML SYR SUBCUT SCH (22:09)
[2019-04-20] MEDS: LACTULOSE 20G/30ML UDC PO SCH ×4 (06:00→22:31)
[2019-04-20] MEDS: BLOOD SUGAR DIAGNOSTIC STRIP TEST SCH ×4 (06:50→21:00)
[2019-04-20] MEDS: INSULIN LISPRO 100 UNITS/ML SUBCUT SCH ×4 (06:51→21:00)
[2019-04-20 08:00] VITALS: BP 109/56
[2019-04-20] MEDS: CALCIUM CARBONATE 1250MG TABLET (500MG ELEMENTAL CALCIUM) PO SCH (08:17)
[2019-04-20] MEDS: ASPIRIN 81MG EC TABLET PO SCH (08:17)
[2019-04-20] MEDS: AMLODIPINE 2.5MG TABLET PO SCH ×2 (08:17→22:33)
[2019-04-20] MEDS: FUROSEMIDE 40MG TABLET PO SCH (08:17)
[2019-04-20] MEDS: APIXABAN 5 MG TABLET PO SCH ×2 (08:17→16:59)
[2019-04-20] MEDS: CARVEDILOL 3.125 MG TABLET PO SCH ×2 (08:17→22:32)
[2019-04-20] MEDS: DOCUSATE SODIUM 100MG CAPSULE PO SCH (08:17)
[2019-04-20] MEDS: CALCITONIN,SALMON, 3.7 ML NASAL SPRAY ONENSTRL SCH (08:18)
[2019-04-20] MEDS: LIDOCAINE 5% PATCH TOP SCH (08:19)
[2019-04-20] MEDS: TRAMADOL 50MG TABLET PO PRN (09:18)
[2019-04-20 14:07] LABS: 25-HYDROXY VITAMIN D3 13 ng/mL (.)
[2019-04-20] MEDS ORDERED: ERGOCALCIFEROL 50000UNITS CAPSULE PO SCH ×2 (15:00→17:00)
[2019-04-20 20:00] VITALS: BP 112/58
[2019-04-20] MEDS: INSULIN GLARGINE UD 100 UNITS/ML SYR SUBCUT SCH (22:30)
[2019-04-20] MEDS: ATORVASTATIN CALCIUM 20MG TABLET PO SCH (22:33)
[2019-04-21] MEDS: LACTULOSE 20G/30ML UDC PO SCH ×3 (06:00→21:56)
[2019-04-21] MEDS: BLOOD SUGAR DIAGNOSTIC STRIP TEST SCH ×4 (06:30→21:56)
[2019-04-21 07:47] LABS: BASOPHILS % 0.8 % (0.0-2.0); EOSINOPHILS % 2.5 % (0.0-5.0); HEMATOCRIT. 32.7 % (42.0-52.0); HEMOGLOBIN. 11.3 g/dL (14.0-18.0); LYMPHOCYTES % 18.8 % (20.0-50.0); MEAN CORPUSCULAR HEMOGLOBIN 33.2 pg (28.0-32.0); MEAN CORPUSCULAR VOLUME 95.8 fL (80.0-94.0); MEAN PLATELET VOLUME 6.9 fl (7.4-10.4); MONOCYTES % 7.7 % (2.0-8.0); NEUTROPHILS % 70.2 % (40.0-76.0); PLATELET 303 x1000/uL (130-400); RED BLOOD CELL COUNT 3.42 mill/uL (4.7-6.1); RED CELL DISTRIBUTION WIDTH 17.4 % (11.6-14.6)
[2019-04-21 08:00] VITALS: BP 126/79
[2019-04-21] MEDS: INSULIN LISPRO 100 UNITS/ML SUBCUT SCH ×3 (09:00→16:55)
[2019-04-21] MEDS: ASPIRIN 81MG EC TABLET PO SCH (09:05)
[2019-04-21] MEDS: CALCIUM CARBONATE 1250MG TABLET (500MG ELEMENTAL CALCIUM) PO SCH (09:06)
[2019-04-21] MEDS: APIXABAN 5 MG TABLET PO SCH ×2 (09:06→16:54)
[2019-04-21] MEDS: AMLODIPINE 2.5MG TABLET PO SCH ×2 (09:06→21:00)
[2019-04-21] MEDS: CARVEDILOL 3.125 MG TABLET PO SCH ×2 (09:06→21:00)
[2019-04-21] MEDS: SPIRONOLACTONE 25MG TABLET PO SCH (09:06)
[2019-04-21] MEDS: DOCUSATE SODIUM 100MG CAPSULE PO SCH (09:07)
[2019-04-21] MEDS: FUROSEMIDE 40MG TABLET PO SCH (09:07)
[2019-04-21] MEDS: CALCITONIN,SALMON, 3.7 ML NASAL SPRAY ONENSTRL SCH (09:07)
[2019-04-21] MEDS: LIDOCAINE 5% PATCH TOP SCH (09:08)
[2019-04-21] MEDS: INSULIN LISPRO (LOW DOSE) 100 UNITS/ML SUBCUT SCH (16:55)
[2019-04-21] MEDS ORDERED: INSULIN LISPRO 100 UNITS/ML SUBCUT SCH (17:00)
[2019-04-21] MEDS ORDERED: INSULIN LISPRO (LOW DOSE) 100 UNITS/ML SUBCUT SCH (17:00)
[2019-04-21 20:00] VITALS: BP 104/48
[2019-04-21] MEDS: ATORVASTATIN CALCIUM 20MG TABLET PO SCH (21:54)
[2019-04-21] MEDS ORDERED: INSULIN GLARGINE UD 100 UNITS/ML SYR SUBCUT SCH (22:00)
[2019-04-22] MEDS: ACETAMINOPHEN 325MG TABLET PO PRN (03:35)
[2019-04-22] MEDS: LACTULOSE 20G/30ML UDC PO SCH ×2 (06:00→14:13)
[2019-04-22] MEDS: BLOOD SUGAR DIAGNOSTIC STRIP TEST SCH ×2 (06:33→11:15)
[2019-04-22] MEDS: INSULIN LISPRO 100 UNITS/ML SUBCUT SCH ×2 (07:24→13:00)
[2019-04-22 07:57] LABS: T4 FREE 1.24 ng/dL (0.76-1.46)
[2019-04-22 08:13] VITALS: BP 122/60
[2019-04-22] MEDS: INSULIN LISPRO (LOW DOSE) 100 UNITS/ML SUBCUT SCH ×2 (09:00→13:00)
[2019-04-22] MEDS: CALCITONIN,SALMON, 3.7 ML NASAL SPRAY ONENSTRL SCH (09:00)
[2019-04-22] MEDS: LIDOCAINE 5% PATCH TOP SCH (09:44)
[2019-04-22] MEDS: DOCUSATE SODIUM 100MG CAPSULE PO SCH (09:44)
[2019-04-22] MEDS: CALCIUM CARBONATE 1250MG TABLET (500MG ELEMENTAL CALCIUM) PO SCH (09:45)
[2019-04-22] MEDS: AMLODIPINE 2.5MG TABLET PO SCH (09:45)
[2019-04-22] MEDS: ASPIRIN 81MG EC TABLET PO SCH (09:45)
[2019-04-22] MEDS: APIXABAN 5 MG TABLET PO SCH (09:46)
[2019-04-22] MEDS: FUROSEMIDE 40MG TABLET PO SCH (09:46)
[2019-04-22] MEDS: CARVEDILOL 3.125 MG TABLET PO SCH (09:46)
[2019-04-22 15:27] VITALS: BP 118/68
== END 2019-04-22 16:00 | disposition home health service (06) | DRG 551 ==
PROVIDERS: ADMIT Physical Medicine & Rehabilitation Spinal Cord Injury Medicine; ATTEND Internal Medicine
DX: S32.019A Unspecified fracture of first lumbar vertebra, initial encounter for closed fracture (principal); G93.41 Metabolic encephalopathy; E43 Unspecified severe protein-calorie malnutrition; N17.0 Acute kidney failure with tubular necrosis; I13.0 Hypertensive heart and chronic kidney disease with heart failure and stage 1 through stage 4 chronic kidney disease, or unspecified chronic kidney disease; I42.9 Cardiomyopathy, unspecified; L97.919 Non-pressure chronic ulcer of unspecified part of right lower leg with unspecified severity; S32.059A Unspecified fracture of fifth lumbar vertebra, initial encounter for closed fracture; S32.049A Unspecified fracture of fourth lumbar vertebra, initial encounter for closed fracture; D69.6 Thrombocytopenia, unspecified; I25.10 Atherosclerotic heart disease of native coronary artery without angina pectoris; E11.22 Type 2 diabetes mellitus with diabetic chronic kidney disease; E11.51 Type 2 diabetes mellitus with diabetic peripheral angiopathy without gangrene; E11.65 Type 2 diabetes mellitus with hyperglycemia; E78.00 Pure hypercholesterolemia, unspecified; E78.5 Hyperlipidemia, unspecified; I25.2 Old myocardial infarction; I48.0 Paroxysmal atrial fibrillation; I50.9 Heart failure, unspecified; I87.2 Venous insufficiency (chronic) (peripheral); J44.9 Chronic obstructive pulmonary disease, unspecified; M48.061 Spinal stenosis, lumbar region without neurogenic claudication; N18.9 Chronic kidney disease, unspecified; Z89.421 Acquired absence of other right toe(s); E55.9 Vitamin D deficiency, unspecified; D53.9 Nutritional anemia, unspecified; W18.39XA Other fall on same level, initial encounter; E11.649 Type 2 diabetes mellitus with hypoglycemia without coma; T38.3X5A Adverse effect of insulin and oral hypoglycemic [antidiabetic] drugs, initial encounter; I27.20 Pulmonary hypertension, unspecified; L98.499 Non-pressure chronic ulcer of skin of other sites with unspecified severity; Z87.891 Personal history of nicotine dependence; Z95.1 Presence of aortocoronary bypass graft; Z95.5 Presence of coronary angioplasty implant and graft; Y93.89 Activity, other specified; Y92.89 Other specified places as the place of occurrence of the external cause; Y99.8 Other external cause status; Z68.23 Body mass index [BMI] 23.0-23.9, adult; Z82.5 Family history of asthma and other chronic lower respiratory diseases
CPT/HCPCS: 36415; 80048; 80053; 82140; 82306; 82533; 82962; 83036; 84134; 84439; 84443; 85025; 92523; 92610; 93923; 93970; 97110; 97116; 97150; 97162; 97166; 97530; 97535; J1815